=== PATIENT | male | born 1940 | race Caucasian/White ===

== ENCOUNTER 2019-05-07 15:04 | Inpatient (IN) | payer MEDICARE, SELFPAY ==
[2019-03-21 12:30] VITALS: BMI 25.1
[2019-03-21 13:10] VITALS: BP 147/82; PULSE 48; RESP 18; TEMP 36.7; O2SAT 98
--- NOTE | 2019-05-01 08:14 | PM.IMHP ---
H&P: HPI History of Present Illness Chief complaint: Left Hip DJD Narrative: Hip Pain Involved hip: left Onset: gradual Location of pain: lateral and posterior Pain scale (0-10): 9 Character: stabbing, radiating, aching, throbbing and weakness Timing of pain: constant Exacerbated by: sitting, activities of daily living and prolonged activity Relieved by: NSAIDs, heat, rest and cane Associated symptoms: Reports weakness History of occupational/recreational activity with repetitive movement: No History of prior hip injury: No Chief Complaint Chief Complaint: see Reason for Visit Duration: years Severity: severe Associated signs and symptoms: symptoms reported: (see HPI ) Exacerbating/relieving factors: relieving factors: (see HPI) Review of Systems Review of Systems: All systems reviewed & are unremarkable except as noted in HPI and below Constitutional: Constitutional: Denies headache(s) and Denies weakness Eyes: Eyes: Denies blurry vision, Denies change in vision and Denies loss of vision ENT: Denies dizziness, Denies dry mouth, Denies headache(s) and Denies nasal congestion Cardiovascular: Cardiovascular: Denies chest pain, Denies syncope, Denies leg edema and Denies dyspnea on exertion Respiratory: Respiratory: Denies cough and Denies dyspnea on exertion Gastrointestinal: Gastrointestinal: Denies abdominal pain, Denies constipation and Denies diarrhea Genitourinary: Genitourinary: Denies urinary frequency Musculoskeletal: Musculoskeletal: Reports as per HPI and Denies numbness Integumentary/Breasts: Skin/Breast: Reports system reviewed and no additional complaints, except as docu Neurologic: Denies dizziness, Denies syncope, Denies headache(s), Denies loss of vision, Denies numbness and Denies weakness Psychiatric: Psychiatric: Reports no additional psychiatric complaints Endocrine: Endocrine: Reports no additional endocrine complaints Hematologic/Lymphatic: Hematologic/Lymphatic: Reports no additional hematologic/lymphatic complaints [facility] Past Medical History Medical History (Updated 03/13/19 @ 11:08 by Reema Bermudez) Left knee pain Social History Social History Smoking status: Never smoker Alcohol intake: current Meds Home Medications and Allergies Home Medications Medication Instructions Recorded Confirmed Type acetaminophen 325 mg tablet 650 mg PO PRN PRN 03/13/19 04/21/19 History aspirin 81 mg tablet,delayed 81 mg PO DAILY 03/13/19 04/21/19 History release atorvastatin 20 mg tablet 20 mg PO QPM 03/13/19 04/21/19 History docusate sodium 100 mg capsule 100 mg PO PRN PRN 03/13/19 04/21/19 History famotidine 20 mg tablet 20 mg PO BID 03/13/19 04/21/19 History furosemide 20 mg tablet 20 mg PO PRN PRN 03/13/19 04/21/19 History lisinopril 2.5 mg tablet 2.5 mg PO DAILY 03/13/19 04/21/19 History magnesium hydroxide 400 mg/5 mL 400 mg PO DAILY PRN 03/13/19 04/21/19 History oral suspension metoprolol succinate 25 mg 25 mg PO DAILY 03/13/19 04/21/19 History tablet,extended release 24 hr multivitamin 1 tablet PO DAILY 03/13/19 04/21/19 History polyethylene glycol 3350 17 17 gm PO PRN PRN 03/13/19 04/21/19 History gram/dose oral powder tramadol 50 mg tablet 50 mg PO Q6H PRN 03/13/19 04/21/19 History mupirocin 2 % topical ointment 1 applic TOPICAL BID #15 gm 03/24/19 04/21/19 Rx Allergies Allergy/AdvReac Type Severity Reaction Status Date / Time Penicillins Allergy Unknown Hives Verified 04/21/19 15:22 Exam Narrative: Exam Narrative: Const Constitutional General: cooperative Nutritional Appearance: average body habitus Orientation/consciousness: oriented x3 Constitutional Limitations: no limitations HENMT Head: normal to inspection Ears: hearing grossly normal bilaterally General nose exam: external nose normal Face and sinus: normal facial exam Mouth: moist mucous membranes Teeth and gingiva: dentition normal Eyes
[2019-05-06] VITALS (11 sets, daily range): BP systolic 71–146; BP diastolic 48–74; PULSE 44–50; RESP 12–16; TEMP 36.4–36.5; O2SAT 91–100
--- NOTE | 2019-05-06 10:10 | WPDANESEPP ---
Anes - Eval Pre Procedure Procedure: Operation Date: 05/06/19 12:00 Proposed Procedures p Left Total Hip Arthroplasty - Roly Rapp MD Date/Time: 05/06/19 10:10 Pre Op Diagnosis: Left Hip DJD Patient Data Age: 78 Gender: M Height: 6 ft 2 in Weight: 88.7 kg Last Vital Signs Temp 98.1 F 03/21/19 13:10 Pulse 48 L 03/21/19 13:10 Resp 18 03/21/19 13:10 BP 147/82 H 03/21/19 13:10 Pulse Ox 98 03/21/19 13:10 Allergies Allergy/AdvReac Type Severity Reaction Status Date / Time Penicillins Allergy Unknown Hives Verified 04/21/19 15:22 Home Medications Medication Instructions Recorded Confirmed Type acetaminophen 325 mg tablet 650 mg PO PRN PRN 03/13/19 04/21/19 History aspirin 81 mg tablet,delayed 81 mg PO DAILY 03/13/19 04/21/19 History release atorvastatin 20 mg tablet 20 mg PO QPM 03/13/19 04/21/19 History docusate sodium 100 mg capsule 100 mg PO PRN PRN 03/13/19 04/21/19 History famotidine 20 mg tablet 20 mg PO BID 03/13/19 04/21/19 History furosemide 20 mg tablet 20 mg PO PRN PRN 03/13/19 04/21/19 History lisinopril 2.5 mg tablet 2.5 mg PO DAILY 03/13/19 04/21/19 History magnesium hydroxide 400 mg/5 mL 400 mg PO DAILY PRN 03/13/19 04/21/19 History oral suspension metoprolol succinate 25 mg 25 mg PO DAILY 03/13/19 04/21/19 History tablet,extended release 24 hr multivitamin 1 tablet PO DAILY 03/13/19 04/21/19 History polyethylene glycol 3350 17 17 gm PO PRN PRN 03/13/19 04/21/19 History gram/dose oral powder tramadol 50 mg tablet 50 mg PO Q6H PRN 03/13/19 04/21/19 History mupirocin 2 % topical ointment 1 applic TOPICAL BID #15 gm 03/24/19 04/21/19 Rx Patient hx anesthesia problems: none Family hx anesthesia problems: none PMFSH Past Medical History Medical History Atrial fibrillation CAD (coronary artery disease) Degenerative joint disease of left hip GERD (gastroesophageal reflux disease) History of heart attack 08/2018 Hyperlipidemia Hypertension Left knee pain Surgical History Surgical History History of appendectomy Hx of CABG 08/22/18 x5 vessel Family History Family History Other Family history of malignant neoplasm Social History Social History Smoking status: Never smoker Alcohol intake: current Exam Day of Procedure 05/06/19 10:10 Patient weight: overweight Neurological: alert and oriented
[2019-05-06] MEDS: IBUPROFEN IV 800 MG/200 ML 800 MG/200 ML BAG 400 MG IVPB (11:00)
[2019-05-06] MEDS: LACTATED RINGERS 1,000 ML 30 ML IV CONT ×2 (11:00→15:15)
--- NOTE | 2019-05-06 11:35 | WPDHPUPDATE1 ---
History and Physical Update Update Date/Time: 05/06/19 11:35 History and Physical has been reviewed, including an updated exam of the patient. There are NO changes in the patient's condition. Risks, benefits, and alternatives have been discussed and questions answered. Patient agrees to proceed with procedure.
--- NOTE | 2019-05-06 11:45 | WPDANESEFPP ---
Anes - Eval Final PreProcedure Day of Procedure 05/06/19 11:45 Patient weight: overweight Heart: regular rate and rhythm Lungs: clear to auscultation and normal air movement Airway: Mallampati scale class II Neurological: alert and oriented Last oral intake: >/= 8 hours ASA classification: III Emergent: no Anesthetic plan: proceed Anesthesia type and monitoring: general ETT and standard monitoring Informed Consent: The patient's anesthetic plan and its attendant risks and benefits were discussed with the patient/family/POA. Questions were solicited and answers provided to the satisfaction of the patient/family/POA.
[2019-05-06] MEDS: ceFAZolin 2 GM/D5W 50 ML 2 GM/50 ML BAG IVPB ×2 (12:22→20:13)
--- NOTE | 2019-05-06 15:03 | PM.OP ---
Procedure Note - Brief Procedure Note - Brief Date of procedure: 05/06/19 Pre-op diagnosis: Left Hip DJD Post-op diagnosis: same Procedure performed: L IGNACIA Anesthesia: GETA Surgeon: Roly Rapp MD Estimated blood loss (mL): 450 Drains: No Complications: No immediate complications Condition: stable Disposition: PACU
[2019-05-06 15:45] LABS: Hematocrit 33.6 % (42.0-52.0); Hemoglobin 10.9 g/dL (14.0-18.0)
--- NOTE | 2019-05-06 15:59 | SUR.PHASEI ---
1555 - family updated on pt's status and sent to room
--- NOTE | 2019-05-06 16:45 | PC.NURSE ---
This patient, Jaxon Maguire, was admitted to 3 [facility] Surg Room 312-01. Patient/family oriented to hospital policies and general routines including ID bracelet, bed and alarms, visiting hours, pain management, procedures, bathroom and other care routines, personal items, smoking policy, room service/diet, and visiting hours. Valuables list has been completed. Information on how to activate the Rapid Response Team has been discussed. Patient/Family are encouraged to report perceived risks to care and to ask questions if they do not understand what they are told or what they should do.
[2019-05-06] MEDS: SODIUM CHLORIDE 0.9% IV 1,000 ML 125 ML IV CONT (18:09)
[2019-05-06] MEDS: DOCUSATE SODIUM 100 MG CAPSULE PO (18:09)
[2019-05-06] MEDS: ATORVASTATIN 20 MG TABLET PO (18:10)
--- NOTE | 2019-05-06 18:14 | OP_ITS ---
DATE OF PROCEDURE: 05/06/2019 PREOPERATIVE DIAGNOSIS: Left hip degenerative joint disease. POSTOPERATIVE DIAGNOSIS: Left hip degenerative joint disease. PROCEDURE: Left total hip arthroplasty. ANESTHESIA: General. COMPLICATIONS: None. INDICATION: This is a 78-year-old male with severe osteoarthrosis to the left hip. He was indicated for left total hip arthroplasty. DESCRIPTION OF PROCEDURE: The patient was taken to the operating room in stable condition and placed in supine position. General anesthesia was induced, and then he was placed in lateral decubitus and the left lower extremity was prepped and draped sterilely from the toes to the thigh. A skin incision was made over the greater trochanter down to the subcutaneous tissues and the fascia was incised. The short external rotators of the hip and the piriformis tendon were identified. Sciatic nerve was identified. The gluteus medius and minimus were retracted. The piriformis was incised along with the capsule. The rest of the short external rotators down to the lesser trochanter. The hip was dislocated. An osteotomy was performed approximately 1 cm proximal to the lesser trochanter. There was severe arthrosis to the joint. There was a deficiency in the posterior wall of the acetabulum. The femoral head measured approximately 58 mm. The acetabulum was exposed. There was calcified capsule that was removed. There was good inferior and superior wall and medial wall coverage. The medial wall bone and anterior wall were sufficient as well, so reaming began approximately 40 degrees of abduction and alignment with the trans-acetabular ligament until a 63 reamer fit well into the acetabulum. The trial was placed and the hip bottomed out well. The trial was removed and then a 64 mm osteotome Biomet acetabular component was tapped into the acetabulum. The fit was excellent. Three screws were placed for extra support. Osteophytes were removed from the inferior wall and the medial wall and in the posteroinferior wall. A liner then was placed and it fit well and was tested and was stable. Next, the femoral canal was prepared, first with a cookie cutter osteotome, and then canal finder and then sequential broaching until an 18 broach fit well within the femoral canal and 15 degrees of anteversion approximately. Neck lengths were incremented until a +12 neck was the proper fit and it was a high offset neck as well. The Shuck test was excellent. The leg lengths were grossly equal. The hip was very stable in internal rotation in 90 degrees of flexion and abduction and adduction. The trial instrumentation was removed, and then a Biomet taper lock #18 with a high offset neck was tapped into place. The fit was excellent. The trial was performed again with a +12 neck and a 36 mm head and it fit well. The Shuck test was excellent and it was very stable in both extension and flexion with internal and external rotation. Then, a cobalt chrome +12 neck, 36 mm head then was tapped under the femoral component. The hip was taken through range of motion once again. The leg lengths were grossly equal. The hip was stable in flexion, extension, and rotation. The wound was then irrigated thoroughly. The piriformis and the short external rotators and the capsule were all approximated with #1 Vicryl. The fascial layer was approximated with #2 Quill, subcutaneous tissues were approximated with 2-0 Vicryl and with 3-0 Quill and then Dermabond was placed. The sterile dressing was applied. The patient was placed back in the supine position. He was extubated and sent to recovery. Gregorio Merrill MT: Orin
[2019-05-06] MEDS: FAMOTIDINE 20 MG TABLET PO (20:14)
[2019-05-06] MEDS: SODIUM CHLORIDE 0.9% IV 1,000 ML 999 ML IV CONT (22:39)
--- NOTE | 2019-05-06 23:02 | PM.IMCN ---
Assessment and Plan Assessment and plan (1) Status post total hip replacement, left: Code(s): Z96.642 - Presence of left artificial hip joint Status: Acute Assessment and Plan: Postop care per Ortho. Pain medication per Ortho. Postop care per Ortho. DVT prophylaxis per ortho. Patient has bilateral SCDs on. (2) Hypertension: Code(s): I10 - Essential (primary) hypertension Status: Chronic Assessment and Plan: Patient is hypotensive had to have a IV bolus. Hold lisinopril and metoprolol as well as Lasix in the morning if his blood pressure still remains low. I believe that the patient had orthostatic hypotension when he got up to the chair. Hold Lasix for now. Is listed as p.r.n. please hold for now. (3) Congestive heart failure: Code(s): I50.9 - Heart failure, unspecified Status: Chronic Assessment and Plan: Patient has systolic congestive heart failure with the EF of of 25-35%. Hold Lasix and metoprolol for today as his blood pressure is low. (4) Anemia: Code(s): D64.9 - Anemia, unspecified Status: Chronic Assessment and Plan: Please continue to monitor CBC. (5) Atrial fibrillation: Code(s): I48.91 - Unspecified atrial fibrillation Status: Chronic Assessment and Plan: Rate is controlled but metoprolol cannot be given at this time due to his low blood pressure. Patient does not appear to be on any anticoagulant. (6) Hyperlipidemia: Code(s): E78.5 - Hyperlipidemia, unspecified Status: Chronic Assessment and Plan: Continue with atorvastatin (7) CAD (coronary artery disease): Code(s): I25.10 - Atherosclerotic heart disease of [place] coronary artery without angina pectoris Status: Chronic Assessment and Plan: History of 5 vessel CABG. Patient's aspirin has been continued. HPI Data of Consult Consult date: 05/06/19 Requesting Physician: Roly Rapp MD Primary Care Provider: Grey Cardona MD Consult Narrative Narrative: Jaxon Maguire is a 78 year old male who has severe degenerative joint disease. The patient had cardiac clearance in order to undergo an elective left total hip arthroplasty today per Dr. Rapp. The patient appeared to be doing well today and Aleve got up in into the chair he felt a little nauseated and lightheaded. The patient's blood pressure dropped. I have been giving him some IV boluses. He has a history of having congestive heart failure and atrial fibrillation. The patient stated that he did eat and drink this evening. Hospitalists were consulted for medical management. The date of service is 05/06/2019. Review of Systems Review of Systems: Narrative: The patient stated that he felt a little dizzy when he got up and sat in a chair. He was nauseated periods is found have a low blood pressure in the knee was placed back to bed. All systems reviewed & are unremarkable except as noted in HPI and below Constitutional: Constitutional: Reports as per HPI and Reports no additional constitutional complaints Eyes: Eyes: Reports as per HPI and Reports no additional eye complaints ENT: Reports system reviewed and no additional complaints, except as documented and Reports Normal hearing present Cardiovascular: Cardiovascular: Reports no additional cardiovascular complaints Respiratory: Respiratory: Reports no additional respiratory complaints and Reports no additional respiratory complaints Gastrointestinal: Gastrointestinal: Reports as per HPI and Reports no additional gastrointestinal complaints Musculoskeletal: Musculoskeletal: Reports no additional musculoskeletal complaints Integumentary/Breasts: Skin/Breast: Reports system reviewed and no additional complaints, except as docu and Reports as per HPI Neurologic: Reports system reviewed and no additional complaints, except as documented, Reports as per HPI and Reports Normal hearing present Psychia
[2019-05-07] VITALS (18 sets, daily range): BP systolic 77–139; BP diastolic 53–78; PULSE 48–79; RESP 14–18; TEMP 36.8–37.4; O2SAT 94–98
--- NOTE | ~2019-05-07 | US_ITS ---
EXAMINATION: US renal BI EXAM DATE: 05/07/2019 16:43 INDICATION: Worsening renal function. TECHNIQUE: Multiple grayscale and Doppler images of the kidneys were obtained (by a technologist who performed the scan) and subsequently reviewed. There is no prior study for comparison. FINDINGS: Right kidney: There is normal contour and echogenicity. It measures 9.7 x 5.6 x 6.3 centimeters. Sev eral cysts, largest measuring 6 cm. There is no hydronephrosis. Left kidney: There is normal contour and echogenicity. It measures 9.6 x 4.6 x 5.6 centimeters. Erika ral cysts, largest measuring 2.5 cm. There is no hydronephrosis. The bladder is distended. Both ureteral jets were confirmed. Prostate normal in size. IMPRESSION: 1. No hydronephrosis. 2. Bilateral renal cysts. 3. Distended bladder. Reviewed, dictated and finalized at location A. TH EDITOR
--- NOTE | ~2019-05-07 | XR_ITS ---
EXAMINATION: XR hip LT 1V DATE: 05/06/2019 15:29 INDICATION: Left hip arthroplasty. Postop. TECHNIQUE: A single view of left hip was obtained. COMPARISON: Pelvis radiograph 08/19/2018 FINDINGS: There is a total left hip arthroplasty in near-anatomic alignment. No fracture. There is ga s in the soft tissues, consistent with recent surgery. IMPRESSION: 1. Total left hip arthroplasty in near-anatomic alignment. Reviewed, dictated and finalized at location A. CAL LIBRARIAN
[2019-05-07] MEDS: ceFAZolin 2 GM/D5W 50 ML 2 GM/50 ML BAG IVPB ×2 (03:53→12:41)
[2019-05-07] MEDS: SODIUM CHLORIDE 0.9% IV 1,000 ML 125 ML IV CONT (05:27)
[2019-05-07 06:12] LABS: Basophils Absolute Auto 0.1 K/mm3 (0.0-0.1); Basophils Percent Auto 0.4 % (0.2-1.2); Eosinophils Percent Auto 0.3 % (0-4.4); Hematocrit 29.9 % (42.0-52.0); Hemoglobin 9.9 g/dL (14.0-18.0); Immature Granulocyte Absolute 0.08 K/mm3 (0.00-0.031); Immature Granulocyte Percent A 0.6 % (0-0.5); Lymphocytes Percent Auto 9.2 % (18.3-44.2); Mean Corpuscular HGB Conc 33.1 g/dl (32-36); Mean Corpuscular Volume 99.7 fl (80-100); Mean Platelet Volume 10.7 fl (7.4-10.4); Monocytes Absolute Auto 1.3 K/mm3 (0.1-0.6); Monocytes Percent Auto 10.1 % (2.6-8.5); Neutrophils Absolute Auto 10.4 K/mm3 (1.3-6.7); Neutrophils Percent Auto 79.4 % (45.5-73.1); Platelet Count Result 175 k/mm3 (150-375); Red Cell Distribution Width 14.6 % (11.5-14.5); White Blood Count 13.1 K/mm3 (4.5-10.0)
[2019-05-07 06:39] LABS: Blood Urea Nitrogen 35 mg/dL (9-20); Calcium 8.3 mg/dL (8.4-10.2); Carbon Dioxide 23 mmol/L (22-30); Chloride 104 mmol/L (98-107); Estimated CRCL calculation 28 ml/min; Estimated Glomerular Filt Rate 28; Glucose 116 mg/dL (75-110); Potassium 5.2 mmol/L (3.4-5.0); Sodium 134 mmol/L (137-145)
[2019-05-07] MEDS: CELECOXIB 200 MG CAPSULE PO (09:15)
[2019-05-07] MEDS: DOCUSATE SODIUM 100 MG CAPSULE PO ×2 (09:15→17:28)
[2019-05-07] MEDS: FAMOTIDINE 20 MG TABLET PO ×2 (09:16→21:12)
[2019-05-07] MEDS: ASPIRIN 325 MG ENTERIC TABLET 650 MG PO (09:16)
--- NOTE | 2019-05-07 13:38 | WPDANESPN ---
Anes - Prog Note Post-Op Date/Time: 05/07/19 13:38 Cardiovascular status: normal Respiratory status: normal Airway patency: baseline Mental status: baseline Post-Op hydration status: normal Vital Signs: Last Vital Signs Temp 36.8 C 05/07/19 10:00 Pulse 60 05/07/19 12:32 Resp 16 05/07/19 10:00 BP 125/78 05/07/19 10:57 Pulse Ox 98 05/07/19 10:00 I/O: Intake & Output 05/06/19 05/07/19 05/07/19 23:59 07:59 15:59 Intake Total 1510 1450 730 Balance 1510 1450 730 Laboratory Tests 05/07/19 05:25 05/07/19 05:25 05/06/19 05/07/19 05/07/19 15:36 05:25 05:25 WBC 13.1 H RBC 3.00 L Hgb 10.9 L D 9.9 L Hct 33.6 L 29.9 L MCV 99.7 MCH 33.0 MCHC 33.1 RDW 14.6 H Plt Count 175 MPV 10.7 H Immature Gran % (Auto) 0.6 H Neut % (Auto) 79.4 H Lymph % (Auto) 9.2 L [place] % (Auto) 10.1 H Eos % (Auto) 0.3 Baso % (Auto) 0.4 Lymph # (Auto) 1.20 [place] # (Auto) 1.3 H Eos # (Auto) 0.0 Baso # (Auto) 0.1 Abs Immat Gran (auto) 0.08 H Absolute Neuts (auto) 10.4 H Absolute Nucleated RBC 0.0 Nucleated RBC % 0.0 Sodium 134 L Potassium 5.2 H Chloride 104 Carbon Dioxide 23 BUN 35 H Creatinine 2.30 H Estim Creat Clear Calc 28 Estimated GFR 28 L Glucose 116 H Calcium 8.3 L Post-procedural complaints: none Patient Feedback: Patient satisfied with anesthetic care.
--- NOTE | 2019-05-07 14:27 | P.PNIM_ITS ---
Progress Note: A&P Assessment and Plan (1) Status post total hip replacement, left: Code(s): Z96.642 - Presence of left artificial hip joint Status: Acute Assessment and Plan: * Doing well POD 1 (2) Hypertension: Qualifiers: Hypertension type: essential hypertension Qualified Code(s): I10 - Essential (primary) hypertension Code(s): I10 - Essential (primary) hypertension Status: Chronic Assessment and Plan: * 3/4 d/c ivf as pressure has normalized (3) Congestive heart failure: Qualifiers: Heart failure type: systolic Heart failure chronicity: chronic Qualified Code(s): I50.22 - Chronic systolic (congestive) heart failure Code(s): I50.9 - Heart failure, unspecified Status: Chronic Assessment and Plan: * EF of of 25-35%. * Hold furosemide and monitor volume status (4) Anemia: Qualifiers: Anemia type: other cause Other causes of anemia: acute posthemorrhagic Qualified Code(s): D62 - Acute posthemorrhagic anemia Code(s): D64.9 - Anemia, unspecified Status: Chronic Assessment and Plan: * Post op due to acute losses, dilution (5) Atrial fibrillation: Qualifiers: Atrial fibrillation type: unspecified Qualified Code(s): I48.91 - Unspecified atrial fibrillation Code(s): I48.91 - Unspecified atrial fibrillation Status: Chronic Assessment and Plan: * HR controlled * Metoprolol held due to low BP * Ideally he would be anticoagulated, but takes only aspirin (6) Hyperlipidemia: Qualifiers: Hyperlipidemia type: unspecified Qualified Code(s): E78.5 - Hyperlipidemia, unspecified Code(s): E78.5 - Hyperlipidemia, unspecified Status: Chronic Assessment and Plan: * Continue atorvastatin (7) CAD (coronary artery disease): Qualifiers: Coronary Disease-Associated Artery/Lesion type: [place] artery [place] vs. transplanted heart: [place] heart Associated angina: without angina Qualified Code(s): I25.10 - Atherosclerotic heart disease of [place] coronary artery without angina pectoris Code(s): I25.10 - Atherosclerotic heart disease of [place] coronary artery without angina pectoris Status: Chronic Assessment and Plan: * History of 5 vessel CABG. * Continue ASA 81mg (8) Acute urinary retention: Code(s): R33.8 - Other retention of urine Status: Acute Assessment and Plan: * Due to narcotics, bedrest, possibly BPH * Straight cath PRN (9) Chronic kidney disease (CKD) stage G4/A2, severely decreased glomerular filtration rate (GFR) between 15-29 mL/min/1.73 square meter and albuminuria creatinine ratio between 30-299 mg/g: Code(s): N18.4 - Chronic kidney disease, stage 4 (severe) Status: Acute Assessment and Plan: * Worsened over past several months * Hyperkalemia suggests obstructive uropathy * Renal u/s Subjective Date/time seen: 05/07/19 14:27 Interval history: Left hip ache. Urinary retention. Dry mouth. Tolerating diet. No cp ro sob. No edema. N GI c/o. Review of Systems Review of Systems: All systems reviewed & are unremarkable except as noted in HPI and below Exam Narrative: Exam Narrative: HEENT: EOMI, PERRL, pharyngeal mucosa pink and intact NECK: No JVD CHEST: Clear to auscultation. Normal effort. HEART: NL S1/S2, regular, no murmur ABDOMEN: BS+, soft, nontender, no mass, no bruits EXTREMITIES: No cyanosis, edema, or clubbing NEUROLOGIC: C
--- NOTE | 2019-05-07 14:27 | PM.IMPN ---
Progress Note: A&P Assessment and Plan (1) Status post total hip replacement, left: Code(s): Z96.642 - Presence of left artificial hip joint Status: Acute Assessment and Plan: Doing well POD 1 (2) Hypertension: Qualifiers: Hypertension type: essential hypertension Qualified Code(s): I10 - Essential (primary) hypertension Code(s): I10 - Essential (primary) hypertension Status: Chronic Assessment and Plan: 3/4 d/c ivf as pressure has normalized (3) Congestive heart failure: Qualifiers: Heart failure type: systolic Heart failure chronicity: chronic Qualified Code(s): I50.22 - Chronic systolic (congestive) heart failure Code(s): I50.9 - Heart failure, unspecified Status: Chronic Assessment and Plan: EF of of 25-35%. Hold furosemide and monitor volume status (4) Anemia: Qualifiers: Anemia type: other cause Other causes of anemia: acute posthemorrhagic Qualified Code(s): D62 - Acute posthemorrhagic anemia Code(s): D64.9 - Anemia, unspecified Status: Chronic Assessment and Plan: Post op due to acute losses, dilution (5) Atrial fibrillation: Qualifiers: Atrial fibrillation type: unspecified Qualified Code(s): I48.91 - Unspecified atrial fibrillation Code(s): I48.91 - Unspecified atrial fibrillation Status: Chronic Assessment and Plan: HR controlled Metoprolol held due to low BP Ideally he would be anticoagulated, but takes only aspirin (6) Hyperlipidemia: Qualifiers: Hyperlipidemia type: unspecified Qualified Code(s): E78.5 - Hyperlipidemia, unspecified Code(s): E78.5 - Hyperlipidemia, unspecified Status: Chronic Assessment and Plan: Continue atorvastatin (7) CAD (coronary artery disease): Qualifiers: Coronary Disease-Associated Artery/Lesion type: [place] artery [place] vs. transplanted heart: [place] heart Associated angina: without angina Qualified Code(s): I25.10 - Atherosclerotic heart disease of [place] coronary artery without angina pectoris Code(s): I25.10 - Atherosclerotic heart disease of [place] coronary artery without angina pectoris Status: Chronic Assessment and Plan: History of 5 vessel CABG. Continue ASA 81mg (8) Acute urinary retention: Code(s): R33.8 - Other retention of urine Status: Acute Assessment and Plan: Due to narcotics, bedrest, possibly BPH Straight cath PRN (9) Chronic kidney disease (CKD) stage G4/A2, severely decreased glomerular filtration rate (GFR) between 15-29 mL/min/1.73 square meter and albuminuria creatinine ratio between 30-299 mg/g: Code(s): N18.4 - Chronic kidney disease, stage 4 (severe) Status: Acute Assessment and Plan: Worsened over past several months Hyperkalemia suggests obstructive uropathy Renal u/s Subjective Date/time seen: 05/07/19 14:27 Interval history: Left hip ache. Urinary retention. Dry mouth. Tolerating diet. No cp ro sob. No edema. N GI c/o. Review of Systems Review of Systems: All systems reviewed & are unremarkable except as noted in HPI and below Exam Narrative: Exam Narrative: HEENT: EOMI, PERRL, pharyngeal mucosa pink and intact NECK: No JVD CHEST: Clear to auscultation. Normal effort. HEART: NL S1/S2, regular, no murmur ABDOMEN: BS+, soft, nontender, no mass, no bruits EXTREMITIES: No cyanosis, edema, or clubbing NEUROLOGIC: CN intact and symmetric to inspection. MUSCULOSKELETAL: Tone and strength symmetric. PSYCH: Alert. Oriented to person, place, and time. Objective Data Vital Signs Vital Signs: Vital Signs - 24 hr 05/06/19 15:15 05/06/19 15:30 05/06/19 15:45 Temperature 97.7 F Pulse Rate 44 L 45 L 46 L Respiratory Rate 13 13 12 Blood Pressure 90/55 L 121/68 118/70 Pulse Oximetry 99 100 100 05/06/19 16:00 05/06/19 16:15 05/06/19 16:30 Temperature
[2019-05-07 15:52] LABS: Albumin Level 3.4 g/dL (3.5-5.1); Blood Urea Nitrogen 31 mg/dL (9-20); Calcium 8.1 mg/dL (8.4-10.2); Carbon Dioxide 21 mmol/L (22-30); Chloride 98 mmol/L (98-107); Estimated CRCL calculation 29 ml/min; Estimated Glomerular Filt Rate 29; Glucose 105 mg/dL (75-110); Phosphorus 3.5 mg/dL (2.5-4.5); Potassium 4.4 mmol/L (3.4-5.0); Sodium 133 mmol/L (137-145)
--- NOTE | 2019-05-07 16:52 | PM.PNORT ---
Progress Note: A&P Additional Plan POD 1 DOING WELL FROM ORTHO STAND POINT. HE IS HAVING SOME URINARY RETENTION AND INCREASED POTASSIUM. CONTINUE CURRENT PT REGIMEN. HIS DISCHARGE WILL BE BASED ON MEDICINE RECOMMENDATIONS. Time Spent With Patient Time with patient: less than 15 minutes Subjective Subjective Date/Time Seen: 05/07/19 1 POD 1 DOING WELL. NO CALF PAIN 6:52 POD 1 DOING WELL. NO CALF PAIN Exam Extrem: Other: VSS AFEBRILE DRESSING DRY [place] INTACT NEG HOMANS SIGN Objective Data Vital Signs Vital Signs: Vital Signs - 24 hr 05/06/19 21:47 05/06/19 22:00 05/06/19 22:19 Temperature 36.4 C L Pulse Rate 48 L 50 L 48 L Respiratory Rate 14 Blood Pressure 72/48 L 71/50 L Pulse Oximetry 91 05/06/19 23:34 05/07/19 00:30 05/07/19 02:00 Temperature 37.2 C Pulse Rate 48 L 50 L Respiratory Rate 14 Blood Pressure 98/56 L 122/54 L Pulse Oximetry 98 05/07/19 04:00 05/07/19 05:30 05/07/19 05:35 Temperature Pulse Rate 54 L 54 L 61 Respiratory Rate Blood Pressure 130/63 77/62 L Pulse Oximetry 05/07/19 05:40 05/07/19 06:00 05/07/19 08:00 Temperature 37.4 C Pulse Rate 61 54 L 49 L Respiratory Rate 14 Blood Pressure 99/56 L 130/63 Pulse Oximetry 97 05/07/19 10:00 05/07/19 10:56 05/07/19 10:57 Temperature 36.8 C Pulse Rate 54 L Respiratory Rate 16 Blood Pressure 139/63 105/57 L 125/78 Pulse Oximetry 98 05/07/19 12:32 05/07/19 13:57 05/07/19 14:00 Temperature 37.1 C Pulse Rate 60 54 L Respiratory Rate 18 Blood Pressure 127/57 L Pulse Oximetry 94 98 05/07/19 16:42 Temperature Pulse Rate 55 L Respiratory Rate Blood Pressure Pulse Oximetry Intake/Output Intake/Output: Intake & Output 05/04/19 05/05/19 05/06/19 05/07/19 23:59 23:59 23:59 23:59 Intake Total 2009 3229 Output Total 500 Balance 2009 2730 Meds/Results Medications: Active Medications Generic Name Dose Route Start Last Admin Trade Name Freq PRN Reason Stop Dose Admin Acetaminophen 650 mg 05/06/19 15:09 Tylenol Tablet PO Q6H PRN Mild Pain (1-3) or Fever Hydrocodone Bitart/Acetaminophen 1 tab 05/06/19 15:09 05/07/19 09:21 [place] 7.5-325 Mg PO 1 tab Q3H PRN Administration Pain Rated 4-6 Aspirin 650 mg 05/07/19 09:00 05/07/19 09:16 Aspirin Ec PO 650 mg DAILY RALPH Administration Atorvastatin Calcium 20 mg 05/06/19 18:00 05/06/19 18:10 Lipitor PO 20 mg QPM RAPLH Administration Celecoxib 200 mg 05/07/19 09:00 05/07/19 09:15 Celebrex PO 200 mg DAILY RALPH Administration Diazepam 5 mg 05/06/19 15:09 Valium Po PO Q6H PRN Anxiety/Muscle Spasm Docusate Sodium 100 mg 05/06/19 17:00 05/07/19 09:15 Colace Capsule PO 100 mg BID RALPH Administration Famotidine 20 mg 05/06/19 21:00 05/07/19 09:16 Pepcid PO 20 mg Q12HR RALPH Administration Fentanyl Citrate 25 mcg 05/05/19 09:26 Sublimaze IV PUSH Q2M PRN Pain Furosemide 20 mg 05/06/19 16:31 Lasix Tablet PO PRN PRN SWELLING Lactated Ringer's 1,000 mls @ 30 mls/hr 05/05/19 09:30 05/06/19 15:15 Lr - Lactated Ringers Iv IV CONT Infused .Q24H RALPH Infusion Lactated Ringer's 1,000 mls @ 30 mls/hr 05/05/19 09:30 05/06/19 16:27 Lr - Lactated Ringers Iv IV CONT Infused .Q24H RALPH Infusion Lisinopril 2.5 mg 05/07/19 09:00 05/07/19 09:10 Prinivil PO Not Given DAILY [facility] Magnesium Hydroxide 30 ml 05/06/19 15:09 Milk Of Magnesia PO BID PRN Constipation Metoprolol Succinate 25 mg 05/07/19 09:00 05/07/19 09:10 Toprol Xl PO Not Given DAILY [facility] Morphine Sulfate 3 mg 05/06/19 15:09 Morphine Sulfate Inj IV PUSH Q3H PRN Pain Rated 7-10 Naloxone HCl 0.1 mg 05/06/19 15:09 Narcan IV PUSH Q2M PRN Opiate Reversal Ondansetron HCl 4 mg 05/05/19 09:26 Zofran Inj IV PUSH ONCE PRN Nausea Ondan
[2019-05-07] MEDS: ATORVASTATIN 20 MG TABLET PO (17:02)
[2019-05-08] VITALS (8 sets, daily range): BP systolic 93–118; BP diastolic 48–61; PULSE 56–79; RESP 16–20; TEMP 36.6–37.3; O2SAT 97–98
[2019-05-08 06:54] LABS: Hematocrit 27.4 % (42.0-52.0); Hemoglobin 9.1 g/dL (14.0-18.0); Immature Platelet Fraction Pct 4.4 % (0.9-11.2); Mean Corpuscular HGB Conc 33.2 g/dl (32-36); Mean Corpuscular Hemoglobin 32.9 pg (26-34); Mean Corpuscular Volume 98.9 fl (80-100); Mean Platelet Volume 10.6 fl (7.4-10.4); Platelet Count Result 147 k/mm3 (150-375); Red Blood Count 2.77 M/mm3 (4.6-6.20); Red Cell Distribution Width 14.4 % (11.5-14.5); White Blood Count 8.3 K/mm3 (4.5-10.0)
[2019-05-08 07:00] LABS: Blood Urea Nitrogen 28 mg/dL (9-20); Calcium 8.2 mg/dL (8.4-10.2); Carbon Dioxide 22 mmol/L (22-30); Chloride 101 mmol/L (98-107); Estimated CRCL calculation 33 ml/min; Estimated Glomerular Filt Rate 34; Glucose 107 mg/dL (75-110); Potassium 4.2 mmol/L (3.4-5.0); Sodium 135 mmol/L (137-145)
--- NOTE | 2019-05-08 07:13 | WPDURCON ---
Assessment and Plan Assessment and plan (1) Acute urinary retention: Code(s): R33.8 - Other retention of urine Status: Acute (2) BPH loc w urin obs/LUTS: Code(s): N40.1 - Benign prostatic hyperplasia with lower urinary tract symptoms Status: Acute Assessment and Plan: Transient post-op retention likely due to underlying BPH complicated by immobility, affects of analgesics/anesthesia on normal detrusor function. Now, seems to be voiding well. Will check bladder scan and, if OK, plan no further intervention. Urology Consult Note HPI Date Seen: 05/08/19 Requesting Physician: Roly Rapp MD Primary Care Provider: Grey Cardona MD Consult Narrative Narrative: Jaxon Maguire is a 78 year old male without antecedent voiding difficulty, or other urological problems, developed transient urinary retention following IGNACIA. He denies pre-operative urinary hesitancy, nocturia, slow steam or sense of incomplete emptying. After need for straight-cath. x2 he's now voiding and seems, by exam, to be emptying completely. Review of Systems Cardiovascular: Cardiovascular: Denies chest pain, Denies lightheadedness, Denies palpitations and Denies dyspnea Respiratory: Respiratory: Denies dyspnea Gastrointestinal: Gastrointestinal: Denies diarrhea, Denies nausea and Denies vomiting Genitourinary: Genitourinary: Denies hematuria and Denies dysuria Endocrine: Endocrine: Denies palpitations PMFSH Past Medical History Medical History Anemia Atrial fibrillation Paroxysmal CAD (coronary artery disease) 5 vessel CABG. 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 Patient stated that he quit smoking about 2 months ago. He said he smoked for many years. No alcohol or illicit drugs. He was an only child. His Sarah is the power bottom turning lathe tender for healthcare. He at this point stated he is a full code because the surgery but otherwise had this at that he is a DNR. There is paperwork from [employer]. He lives with his . He has 1 child. Smoking packs per day: 0.5 Smoking cigarettes per day: 10.0 Years smoked: 50 Smoking pack-years: 25.00 Smoking status: Former smoker Second hand tobacco smoke exposure: Yes Alcohol intake: never Substance use: never Living arrangements: assisted living Occupation/Education: retired Gender identity (if verbalized by the patient): Male Spiritual care concerns: No Agree to blood products: Yes Meds Home Medications and Allergies Home Medications Medication Instructions Recorded Confirmed Type acetaminophen 325 mg tablet 650 mg PO PRN PRN 03/13/19 05/06/19 History aspirin 81 mg tablet,delayed 81 mg PO DAILY 03/13/19 05/06/19 History release atorvastatin 20 mg tablet 20 mg PO QPM 03/13/19 05/06/19 History docusate sodium 100 mg capsule 100 mg PO PRN PRN 03/13/19 05/06/19 History famotidine 20 mg tablet 20 mg PO BID 03/13/19 05/06/19 History furosemide 20 mg tablet 20 mg PO PRN PRN 03/13/19 05/06/19 History lisinopril 2.5 mg tablet 2.5 mg PO DAILY 03/13/19 05/06/19 History magnesium hydroxide 400 mg/5 mL 400 mg PO DAILY PRN
[2019-05-08] MEDS: CELECOXIB 200 MG CAPSULE PO (09:04)
[2019-05-08] MEDS: ASPIRIN 325 MG ENTERIC TABLET 650 MG PO (09:04)
[2019-05-08] MEDS: DOCUSATE SODIUM 100 MG CAPSULE PO (09:05)
[2019-05-08] MEDS: FAMOTIDINE 20 MG TABLET PO (09:05)
--- NOTE | 2019-05-08 15:14 | P.PNIM_ITS ---
Progress Note: A&P Assessment and Plan (1) Status post total hip replacement, left: Code(s): Z96.642 - Presence of left artificial hip joint Status: Acute Assessment and Plan: * Doing well POD 2 * Medically stable to discharge (2) Hypertension: Qualifiers: Hypertension type: essential hypertension Qualified Code(s): I10 - Essential (primary) hypertension Code(s): I10 - Essential (primary) hypertension Status: Chronic Assessment and Plan: * 3/4 d/c ivf as pressure has normalized * Conitnue to hole metoprolol due to soft bp (3) Congestive heart failure: Qualifiers: Heart failure type: systolic Heart failure chronicity: chronic Qualified Code(s): I50.22 - Chronic systolic (congestive) heart failure Code(s): I50.9 - Heart failure, unspecified Status: Chronic Assessment and Plan: * EF of of 25-35%. * Continue to hold metoprolol and furosemide until f/u with Dr. Payne (4) Anemia: Qualifiers: Anemia type: other cause Other causes of anemia: acute posthemorrhagic Qualified Code(s): D62 - Acute posthemorrhagic anemia Code(s): D64.9 - Anemia, unspecified Status: Chronic Assessment and Plan: * Post op due to acute losses, dilution (5) Atrial fibrillation: Qualifiers: Atrial fibrillation type: unspecified Qualified Code(s): I48.91 - Unspecified atrial fibrillation Code(s): I48.91 - Unspecified atrial fibrillation Status: Chronic Assessment and Plan: * HR controlled * Metoprolol held due to low BP * Ideally he would be anticoagulated, but takes only aspirin (6) Hyperlipidemia: Qualifiers: Hyperlipidemia type: unspecified Qualified Code(s): E78.5 - Hyperlipidemia, unspecified Code(s): E78.5 - Hyperlipidemia, unspecified Status: Chronic Assessment and Plan: * Continue atorvastatin (7) CAD (coronary artery disease): Qualifiers: Coronary Disease-Associated Artery/Lesion type: [place] artery [place] vs. transplanted heart: [place] heart Associated angina: without angina Qualified Code(s): I25.10 - Atherosclerotic heart disease of [place] coronary artery without angina pectoris Code(s): I25.10 - Atherosclerotic heart disease of [place] coronary artery without angina pectoris Status: Chronic Assessment and Plan: * History of 5 vessel CABG. * Continue ASA 81mg (8) Acute urinary retention: Code(s): R33.8 - Other retention of urine Status: Acute Assessment and Plan: * Due to narcotics, bedrest, possibly BPH * Straight cath PRN (9) Chronic kidney disease (CKD) stage G4/A2, severely decreased glomerular filtration rate (GFR) between 15-29 mL/min/1.73 square meter and albuminuria creatinine ratio between 30-299 mg/g: Code(s): N18.4 - Chronic kidney disease, stage 4 (severe) Status: Acute Assessment and Plan: * Worsened over past several months * Hyperkalemia suggests obstructive uropathy * Renal u/s negative for hydronephrosis * Repeat BMP in 5 days Subjective Date/time seen: 05/08/19 15:14 Interval history: Urinating every couple of hours now. Good stream. No discomfort. No bleeding. Required to straight catheters last evening. Tolerating diet. No chest pain or shortness of breath or dizziness or lightheadedness. Review of Systems Review of Systems: All systems reviewed & are unremarkable except as noted in HPI and below Exam Narrative:
--- NOTE | 2019-05-08 15:14 | PM.IMPN ---
Progress Note: A&P Assessment and Plan (1) Status post total hip replacement, left: Code(s): Z96.642 - Presence of left artificial hip joint Status: Acute Assessment and Plan: Doing well POD 2 Medically stable to discharge (2) Hypertension: Qualifiers: Hypertension type: essential hypertension Qualified Code(s): I10 - Essential (primary) hypertension Code(s): I10 - Essential (primary) hypertension Status: Chronic Assessment and Plan: 3/4 d/c ivf as pressure has normalized Conitnue to hole metoprolol due to soft bp (3) Congestive heart failure: Qualifiers: Heart failure type: systolic Heart failure chronicity: chronic Qualified Code(s): I50.22 - Chronic systolic (congestive) heart failure Code(s): I50.9 - Heart failure, unspecified Status: Chronic Assessment and Plan: EF of of 25-35%. Continue to hold metoprolol and furosemide until f/u with Dr. Payne (4) Anemia: Qualifiers: Anemia type: other cause Other causes of anemia: acute posthemorrhagic Qualified Code(s): D62 - Acute posthemorrhagic anemia Code(s): D64.9 - Anemia, unspecified Status: Chronic Assessment and Plan: Post op due to acute losses, dilution (5) Atrial fibrillation: Qualifiers: Atrial fibrillation type: unspecified Qualified Code(s): I48.91 - Unspecified atrial fibrillation Code(s): I48.91 - Unspecified atrial fibrillation Status: Chronic Assessment and Plan: HR controlled Metoprolol held due to low BP Ideally he would be anticoagulated, but takes only aspirin (6) Hyperlipidemia: Qualifiers: Hyperlipidemia type: unspecified Qualified Code(s): E78.5 - Hyperlipidemia, unspecified Code(s): E78.5 - Hyperlipidemia, unspecified Status: Chronic Assessment and Plan: Continue atorvastatin (7) CAD (coronary artery disease): Qualifiers: Coronary Disease-Associated Artery/Lesion type: [place] artery [place] vs. transplanted heart: [place] heart Associated angina: without angina Qualified Code(s): I25.10 - Atherosclerotic heart disease of [place] coronary artery without angina pectoris Code(s): I25.10 - Atherosclerotic heart disease of [place] coronary artery without angina pectoris Status: Chronic Assessment and Plan: History of 5 vessel CABG. Continue ASA 81mg (8) Acute urinary retention: Code(s): R33.8 - Other retention of urine Status: Acute Assessment and Plan: Due to narcotics, bedrest, possibly BPH Straight cath PRN (9) Chronic kidney disease (CKD) stage G4/A2, severely decreased glomerular filtration rate (GFR) between 15-29 mL/min/1.73 square meter and albuminuria creatinine ratio between 30-299 mg/g: Code(s): N18.4 - Chronic kidney disease, stage 4 (severe) Status: Acute Assessment and Plan: Worsened over past several months Hyperkalemia suggests obstructive uropathy Renal u/s negative for hydronephrosis Repeat BMP in 5 days Subjective Date/time seen: 05/08/19 15:14 Interval history: Urinating every couple of hours now. Good stream. No discomfort. No bleeding. Required to straight catheters last evening. Tolerating diet. No chest pain or shortness of breath or dizziness or lightheadedness. Review of Systems Review of Systems: All systems reviewed & are unremarkable except as noted in HPI and below Exam Narrative: Exam Narrative: HEENT: EOMI, PERRL, pharyngeal mucosa pink and intact NECK: No JVD CHEST: Clear to auscultation. Normal effort. HEART: NL S1/S2, regular, no murmur ABDOMEN: BS+, soft, nontender, no mass, no bruits EXTREMITIES: No cyanosis, edema, or clubbing NEUROLOGIC: CN intact and symmetric to inspection. MUSCULOSKELETAL: Tone and strength symmetric. PSYCH: Alert. Oriented to person, place, and time. Objective Data Vital Signs Vital Signs: Vi
--- NOTE | 2019-05-09 11:33 | P.DS_ITS ---
DS: Diagnosis Admitting Diagnosis Admitting Diagnosis: Unilateral primary osteoarthritis, left hip DS: Summary Time Spent with Patient Time attestation: Total time spent providing and/or coordinating discharge serv ices: 15 MIN Discharge Plan Discharge Attending physician on discharge: Roly Rapp Consulting providers: Claudette Cary ; Gee Pizarro Discharging Clinician: Roly Rapp Patient Disposition: Home Health Service Activity: may shower and as tolerated Diet: heart healthy Wound Care Instructions: other - see discharge instructions Discharge Instructions: Monitor weight daily and call MD for any 2 pound weight change. Call Dr. Payne or go to ED if you have: Chest discomfort, shortness of breath, swelling of legs. Call Dr. Curran if you have difficulty urinating. Per Care Coordination, Pt. will discharge to [facility] . Send dressing home with patient for home health nurse to change in 5 days. Patient Instructions: Antibiotic Form, Precautions after Total Joint Replacement Surgery (DC) Stand Alone Forms: General Discharge Information Follow-up/Referrals: Roly Rapp MD [Physician] - 3 Weeks Discharge Medications: New celecoxib [Celebrex] 200 mg Capsule 200 mg PO DAILY Qty: 28 RF: 0 Continued acetaminophen [Tylenol] 325 mg tablet 650 mg PO PRN PRN (Reason: Pain) RF: 0 famotidine 20 mg tablet 20 mg PO BID RF: 0 magnesium hydroxide [Eisenberg Milk of Magnesia] 400 mg/5 mL suspension 400 mg PO DAILY PRN (Reason: Constipation) RF: 0 tramadol 50 mg tablet 50 mg PO Q6H PRN (Reason: Pain) RF: 0 atorvastatin 20 mg tablet 20 mg PO QPM RF: 0 docusate sodium [Colace] 100 mg capsule 100 mg PO PRN PRN (Reason: Constipation) RF: 0 polyethylene glycol 3350 [Miralax] 17 gram/dose powder 17 gm PO PRN PRN (Reason: Constipation) RF: 0 metoprolol succinate [Toprol XL] 25 mg tablet extended release 24 hr 25 mg PO DAILY RF: 0 multivitamin Tablet 1 tablet PO DAILY RF: 0 mupirocin 2 % ointment 1 applic TOPICAL BID Qty: 15 RF: 0 Changed aspirin 81 mg tablet,delayed release (DR/EC) 162 mg PO DAILY Qty: 0 RF: 0 Held lisinopril 2.5 mg tablet 2.5 mg PO DAILY RF: 0 Hold Instructions: Resume on 05/15/19. Resume when approved by Dr. Payne furosemide 20 mg tablet 20 mg PO PRN PRN (Reason: SWELLING) RF: 0 Hold Instructions: Resume on 05/15/19. Resume when approved by Dr. Payne Other Ambulatory Orders: Basic Metabolic Panel (Routine) Timeframe: 5 Days Location: Determined by Patient Ordered By: Bradley Forbes Date of admission: 05/07/19 15:04 Primary Care Provider: Grey Cardona Admitting Provider: Roly Rapp Discharge Date/Time: 05/08/19 19:02 Attending physician on admission: Roly Rapp Condition: Stable Quality VTE Prophylaxis VTE prophylaxis: mechanical ordered
--- NOTE | 2019-05-29 13:48 | P.DS_ITS ---
DS: Diagnosis Admitting Diagnosis Admitting Diagnosis: Unilateral primary osteoarthritis, left hip Discharge Diagnosis (1) Degenerative joint disease of left hip: Qualifiers: Osteoarthritis type: primary Qualified Code(s): M16.12 - Unilateral primary osteoarthritis, left hip Code(s): M16.12 - Unilateral primary osteoarthritis, left hip Status: Acute DS: Summary Time Spent with Patient Time attestation: Total time spent providing and/or coordinating discharge services: Discharge Plan Discharge Attending physician on discharge: Roly Rapp Consulting providers: Claudette Cary ; Yaakov Curran ; Kayleen Hickey ; Chirag Kidd ; Bradley Forbes Discharging Clinician: Roly Rapp Patient Disposition: Home, Self-Care Activity: may shower and as tolerated Diet: heart healthy Wound Care Instructions: other - see discharge instructions Discharge Instructions: Monitor weight daily and call MD for any 2 pound weight change. Call Dr. Payne or go to ED if you have: Chest discomfort, shortness of breath, swelling of legs. Call Dr. Curran if you have difficulty urinating. Per Care Coordination, Pt. will discharge to [facility] . Send dressing home with patient for home health nurse to change in 5 days. Patient Instructions: Antibiotic Form, Precautions after Total Joint Replacem ent Surgery (DC) Stand Alone Forms: General Discharge Information Follow-up/Referrals: Roly Rapp MD [Physician] - 3 Weeks Discharge Medications: New celecoxib [Celebrex] 200 mg Capsule 200 mg PO DAILY Qty: 28 RF: 0 Continued acetaminophen [Tylenol] 325 mg tablet 650 mg PO PRN PRN (Reason: Pain) RF: 0 famotidine 20 mg tablet 20 mg PO BID RF: 0 magnesium hydroxide [[place]isenberg Milk of Magnesia] 400 mg/5 mL suspension 400 mg PO DAILY PRN (Reason: Constipation) RF: 0 tramadol 50 mg tablet 50 mg PO Q6H PRN (Reason: Pain) RF: 0 atorvastatin 20 mg tablet 20 mg PO QPM RF: 0 docusate sodium [Colace] 100 mg capsule 100 mg PO PRN PRN (Reason: Constipation) RF: 0 polyethylene glycol 3350 [Miralax] 17 gram/dose powder 17 gm PO PRN PRN (Reason: Constipation) RF: 0 metoprolol succinate [Toprol XL] 25 mg tablet extended release 24 hr 25 mg PO DAILY RF: 0 multivitamin Tablet 1 tablet PO DAILY RF: 0 mupirocin 2 % ointment 1 applic TOPICAL BID Qty: 15 RF: 0 Changed aspirin 81 mg tablet,delayed release (DR/EC) 162 mg PO DAILY Qty: 0 RF: 0 Held lisinopril 2.5 mg tablet 2.5 mg PO DAILY RF: 0 Hold Instructions: Resume on 05/15/19. Resume when approved by Dr. Payne furosemide 20 mg tablet 20 mg PO PRN PRN (Reason: SWELLING) RF: 0 Hold Instructions: Resume on 05/15/19. Resume when approved by Dr. Payne Other Ambulatory Orders: Basic Metabolic Panel (Routine) Timeframe: 5 Days Location: Determined by Patient Ordered By: Bradley Forbes Date of admission: 05/07/19 15:04 Primary Care Provider: Grey Cardona Admitting Provider: Roly Rapp Discharge Date/Time: 05/08/19 19:02 Attending physician on admission: Roly Rapp Condition: Stable Quality VTE Prophylaxis VTE prophylaxis: mechanical ordered
== END 2019-05-08 19:02 | disposition home or self-care (01) | DRG 470 ==
LOC: ANHSURGERY 15:34 → ANH3MEDSUR 15:34
PROVIDERS: Internal Medicine; Admitting Provider Orthopaedic Surgery; PCP Family Medicine Adolescent Medicine; Visit Provider Orthopaedic Surgery
PROC: 0SRB01A Replacement of Left Hip Joint with Metal Synthetic Substitute, Uncemented, Open Approach (ICD-10-PCS; CPT 27130; principal; 2019-05-06 12:00)
DX: M16.12 Unilateral primary osteoarthritis, left hip (principal); I13.0 Hypertensive heart and chronic kidney disease with heart failure and stage 1 through stage 4 chronic kidney disease, or unspecified chronic kidney disease; I50.22 Chronic systolic (congestive) heart failure; N18.4 Chronic kidney disease, stage 4 (severe); D62 Acute posthemorrhagic anemia; I48.20 Chronic atrial fibrillation, unspecified; R33.8 Other retention of urine; N40.1 Benign prostatic hyperplasia with lower urinary tract symptoms; N13.9 Obstructive and reflux uropathy, unspecified; I25.10 Atherosclerotic heart disease of native coronary artery without angina pectoris; K21.9 Gastro-esophageal reflux disease without esophagitis; E78.5 Hyperlipidemia, unspecified; E87.5 Hyperkalemia; F17.210 Nicotine dependence, cigarettes, uncomplicated; I25.2 Old myocardial infarction; Z95.1 Presence of aortocoronary bypass graft; Z87.891 Personal history of nicotine dependence
CPT/HCPCS: 36415; 73501; 76775; 80048; 80069; 85014; 85018; 85025; 85027; 85055; 86850; 86900; 86901; 87081; 97110; 97116; 97161; 97165; 97530; 97535; A9270; C1776; J0171; J0690; J1100; J1170; J1741; J2270; J2370; J2405; J2704; J2710; J2795; J3010; J3370; J7030; J7120

== ENCOUNTER 2020-12-15 16:43 | Inpatient (IN) | payer MEDICARE, SELFPAY ==
--- NOTE | ~2020-12-15 | CT_ITS ---
EXAMINATION: CT abdomen pelvis w con DATE: 12/15/2020 18:34 INDICATION: Epigastric abdominal pain. TECHNIQUE: Computed tomography (CT) of the abdomen and pelvis was performed with 100 mL Omnipaque 350 intravenous contrast. Automated exposure control and iterative reconstruction technique were employe d. The dose-length product was 753.81 mGy-cm. COMPARISON: CT abdomen and pelvis 08/22/2018 FINDINGS: The visualized portions of the lung bases demonstrate mild emphysema and mild dependent ate lectasis. There is smooth septal thickening, consistent with mild pulmonary edema. There are trace pl eural effusions. Cardiomegaly is noted. There are coronary artery calcifications. There are calcifica tions of the aortic valve. There are changes of coronary artery bypass grafting. The liver and gallbl adder are normal. Calcifications in the spleen are consistent with old granulomatous disease. The tong creas and adrenal glands are normal. There are cysts in the kidneys measuring up to 6.4 cm on the rig ht. There is a 2.8 cm enhancing mass in left kidney lower pole, increased from 1.9 cm on 08/22/2018. T here are scattered diverticula colon. There is mild wall thickening of sigmoid colon. There is disten tion of the proximal colon. There is a moderate volume of stool in the colon. Stool distends the rect um. There are likely changes of appendectomy. There are no pathologically enlarged lymph nodes. There is no free intraperitoneal fluid. There is a left hip arthroplasty. There is severe lumbar spondylos is. There is mild chronic height loss of multiple vertebral bodies. There is dextroscoliosis of thora columbar spine. IMPRESSION: 1. Mild pulmonary edema. 2. Mild wall thickening of sigmoid colon, likely chronic diverticulitis. 3. Distention of the proximal colon and rectum, likely adynamic ileus. 4. 2.8 cm enhancing mass in left kidney, increased from 1.9 cm on 08/22/2018, consistent with renal ce ll carcinoma. Reviewed, dictated and finalized at location A. IMPRESSION: 1. Mild pulmonary edema. 2. Mild wall thickening of sigmoid colon, likely chronic diverticulitis. 3. Distention of the proximal colon and rectum, likely adynamic ileus. 4. 2.8 cm enhancing mass in left kidney, increased from 1.9 cm on 08/22/2018, co nsistent with renal cell carcinoma.
--- NOTE | ~2020-12-15 | CT_ITS ---
EXAMINATION: CTA abdomen pelvis DATE: 12/15/2020 22:46 INDICATION: Severe abdominal pain. TECHNIQUE: Computed tomographic angiography (CTA) of the abdomen and pelvis was performed with 100 mL Omnipaque-350 intravenous contrast. Automated exposure control and iterative reconstruction techniqu e were employed. The dose-length product was 1217.06 mGy-cm. Maximum intensity projection 3D-reconstr uctions of the aorta and other arteries were constructed by the technologist on a separate workstatio n. COMPARISON: CT abdomen and pelvis 12/15/2020 at 6:11 PM, 08/22/18 FINDINGS: The visualized portions of the lung bases demonstrate mild dependent atelectasis. There is mild emphysema. There are small pleural effusions. The heart size is normal. There are coronary arter y calcifications. Median sternotomy wires are noted. No pericardial effusion. There is a small slidin g hiatal hernia. The liver is normal. The gallbladder is contracted and contains contrast. Calcificat ions in the spleen are consistent with old granulomatous disease. The pancreas and adrenal glands are normal. There are cysts in the kidneys measuring up to 7.1 cm on the right. There is a 2.8 cm enhanc ing mass in left kidney lower pole. There is a moderate volume of stool in the colon. There is disten tion of the rectum. There are scattered diverticula in the colon. There is mild wall thickening of th e sigmoid colon. There are likely changes of appendectomy. There are no pathologically enlarged lymph nodes. There is no free intraperitoneal fluid. The prostate is mildly enlarged. There is calcified a therosclerosis of the aorta and many of the other arteries. There is no significant stenosis of guerita c axis. There is severe stenosis of superior mesenteric artery 7 cm from its origin. Abdominal aorta is normal in caliber. There is a fenestrated intimal flap in infrarenal aorta. There is an intimal fl ap in right renal artery with contrast opacification on both sides of the flap. There is moderate wing nosis of left renal artery origin. There is no significant stenosis of inferior mesenteric artery. Th ere is total occlusion of left superficial femoral artery. There is a total left hip arthroplasty. Th ere is severe lumbar spondylosis. IMPRESSION: 1. 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 2. Intimal flaps in infrarenal aorta and right renal artery. 3. Moderate stenosis of left renal artery. 4. Total occlusion of left superficial femoral artery. 5. Small pleural effusions. 6. Chronic mild wall thickening of sigmoid colon, likely chronic diverticulitis. 7. Distention of the rectum, likely adynamic ileus. 8. 2.8 cm enhancing mass in left kidney, increased from 1.9 cm on 08/22/2018, consistent with renal ce ll carcinoma. Reviewed, dictated and finalized at location A. IMPRESSION: 1. 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 2. Intimal flaps in infrarenal aorta and right renal artery. 3. Moderate stenosis of left renal artery. 4. Total occlusion of left superficial femoral artery. 5. Small pleural effusions. 6. Chronic mild wall thickening of sigmoid colon, likely chronic diverticulitis . 7. Distention of the rectum, likely adynamic ileus. 8. 2.8 cm enhancing mass in left kidney, increased from 1.9 cm on 08/22/2018, co nsistent with renal cell carcinoma.
[2020-12-15 16:49] VITALS: PULSE 58; RESP 20; TEMP 36.5; O2SAT 95
--- NOTE | 2020-12-15 16:50 | ED.ABDPAIN ---
HPI - Abdominal Pain General Chief Complaint: Abdominal Pain Stated Complaint: ABD PAIN Time Seen by Provider: 12/15/20 16:45 Source: patient and EMS Mode of arrival: EMS Limitations: no limitations History of Present Illness HPI narrative: Patient is an 80-year-old male with a history of hypertension, CHF, atrial fibrillation, anemia, who presents for evaluation of abdominal pain. Pain began suddenly while the patient was playing cards with his friends. He reports central abdominal pain without radiation to the back. No lower abdominal pain. Patient states that he does not have any recent food indiscretions. He denies nausea and vomiting up to this point. He denies fever or chills. Patient states he feels weak, slightly sweaty. No chest pain or shortness of breath. Patient has history of appendectomy. No other intra-abdominal surgery. Related Data Home Medications Medication Instructions Recorded Confirmed acetaminophen 325 mg tablet 650 mg PO PRN PRN 03/13/19 05/06/19 atorvastatin 20 mg tablet 20 mg PO QPM 03/13/19 05/06/19 docusate sodium 100 mg capsule 100 mg PO PRN PRN 03/13/19 05/06/19 famotidine 20 mg tablet 20 mg PO BID 03/13/19 05/06/19 furosemide 20 mg tablet 20 mg PO PRN PRN 03/13/19 05/06/19 lisinopril 2.5 mg tablet 2.5 mg PO DAILY 03/13/19 05/06/19 magnesium hydroxide 400 mg/5 mL 400 mg PO DAILY PRN 03/13/19 05/06/19 oral suspension metoprolol succinate 25 mg 25 mg PO DAILY 03/13/19 05/06/19 tablet,extended release 24 hr multivitamin 1 tablet PO DAILY 03/13/19 05/06/19 polyethylene glycol 3350 17 17 gm PO PRN PRN 03/13/19 05/06/19 gram/dose oral powder tramadol 50 mg tablet 50 mg PO Q6H PRN 03/13/19 05/06/19 Allergies Allergy/AdvReac Type Severity Reaction Status Date / Time Penicillins Allergy Unknown Hives Verified 05/06/19 11:54 Review of Systems Review of Systems: CONSTITUTIONAL: Denies fever, chills, or sweats. EYES: Denies visual changes, redness, or discharge. ENT: Denies rhinorrhea, congestion, sore throat, or otalgia. CARDIOVASCULAR: Denies chest pain, palpitations, or edema. RESPIRATORY: Denies cough or dyspnea. GASTROINTESTINAL: Reports abdominal pain, nausea, vomiting GENITOURINARY: Denies dysuria or hematuria. SKIN: Denies rash or itching. MUSCULOSKELETAL: Denies back pain, joint pain, or myalgia. NEUROLOGIC: Denies headache, numbness, reports feeling diffusely weak PMFSH Past Medical History Medical History (Updated 12/15/20 @ 20:17 by Luanne Castano MD) Anemia Atrial fibrillation Paroxysmal CAD (coronary artery disease) 5 vessel CABG. 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 Patient stated that he quit smoking about 2 months ago. He said he smoked for many years. No alcohol or illicit drugs. He was an only child. His Sarah is the power prosecuting attorney for healthcare. He at this point stated he is a full code because the surgery but otherwise had this at that he is a DNR. There is paperwork from [employer]. He lives with his . He has 1 child. Smoking packs per day: 0.5 Smoking cigarettes per day: 10.0 Years smoked: 50 Smoking pack-years: 25.00 Smoking status: Former smoker Second hand tobacco smoke ex
--- NOTE | 2020-12-15 16:57 | ECG_ITS ---
Measurements Intervals [place] Rate: 61 P: 41 RI: 149 QRS: -19 QRSD: 129 T: 47 QT: 474 QTc: 480 Interpretive Statements SINUS RHYTHM POSSIBLE LEFT ATRIAL ENLARGEMENT MINIMAL Q WAVES- LATERAL LEADS INFERIOR INFARCT, AGE INDETERMINATE BORDERLINE ST-T WAVE ABNORMALITY- HIGH LATERAL LEADS BASELINE ARTIFACT- II, III, AVF ABNORMAL ECG Electronically Signed On 12-15-2020 20:21:45 CDT by Roel Orta D.O.
[2020-12-15] MEDS: ONDANSETRON INJ 4 MG/2 ML VIAL IV PUSH ×2 (17:23→23:34)
[2020-12-15] MEDS: MORPHINE SULFATE (*CRX) 4 MG/ML INJ IV PUSH (17:23)
[2020-12-15] MEDS: SODIUM CHLORIDE 0.9% IV 1,000 ML 999 ML IV CONT (17:24)
[2020-12-15 17:55] LABS: Basophils Absolute Auto 0.1 K/mm3 (0.0-0.1); Basophils Percent Auto 0.6 % (0.2-1.2); Eosinophils Absolute Auto 0.4 K/mm3 (0-0.3); Eosinophils Percent Auto 3.2 % (0-4.4); Hematocrit 45.9 % (42.0-52.0); Immature Granulocyte Absolute 0.05 K/mm3 (0.00-0.031); Immature Granulocyte Percent A 0.4 % (0-0.5); Lymphocytes Absolute Auto 2.37 K/mm3 (0.9-3.2); Lymphocytes Percent Auto 18.6 % (18.3-44.2); Mean Corpuscular HGB Conc 32.7 g/dl (32-36); Mean Corpuscular Hemoglobin 28.1 pg (26-34); Mean Corpuscular Volume 86.1 fl (80-100); Mean Platelet Volume 9.9 fl (7.4-10.4); Monocytes Percent Auto 8.2 % (2.6-8.5); Neutrophils Absolute Auto 8.8 K/mm3 (1.3-6.7); Platelet Count Result 244 k/mm3 (150-375); Red Blood Count 5.33 M/mm3 (4.6-6.20); Red Cell Distribution Width 15.9 % (11.5-14.5); White Blood Count 12.8 K/mm3 (4.5-10.0)
[2020-12-15 18:06] LABS: Alanine Aminotransferase 17 U/L (4-50); Albumin Level 4.3 g/dL (3.5-5.1); Alkaline Phosphatase 102 U/L (38-126); Anion Gap 10 mmol/L (8-16); Aspartate Amino Transferase 27 U/L (17-59); Bilirubin,Total 0.4 mg/dL (0.2-1.3); Blood Urea Nitrogen 34 mg/dL (9-20); Carbon Dioxide 22 mmol/L (22-30); Chloride 109 mmol/L (98-107); Estimated CRCL calculation 34 ml/min; Estimated Glomerular Filt Rate 36; Glucose 122 mg/dL (65-110); Sodium 141 mmol/L (137-145)
[2020-12-15 18:32] VITALS: BP 203/94; RESP 18; O2SAT 99
[2020-12-15] MEDS: HYDROmorphone HCL INJ (*CRX) 1 MG/ML SYR 0.5 MG IV PUSH (19:26)
[2020-12-15 20:36] VITALS: BP 226/101; PULSE 66; RESP 21; O2SAT 95
[2020-12-15] MEDS: hydrALAZINE HCL 20 MG/ML VIAL 10 MG IV PUSH (20:45)
[2020-12-15 20:52] LABS: Add Urine Microscopic? YES; Appearance Urine Clear (Clear); Bilirubin Urine Negative (Negative); Blood Urine Negative (Negative); Color Urine Yellow (Yellow); Glucose Urine UA Negative (Negative); Ketones Urine Negative (Negative); Leukocyte Esterase Ur Negative LEU/UL (Negative); Nitrate Urine Negative (Negative); Protein Urine 1+ mg/dL (Negative); Squamous Epithelial Cell Urine Rare /hpf (Few); Urobilinogen Urine Negative mg/dL (<2.0); WBC Urine 0-3 /hpf
--- NOTE | 2020-12-15 20:52 | PM.IMHP ---
H&P: HPI History of Present Illness Date/Time: 12/15/20 20:52 Chief Complaint: Abdominal pain. Narrative: This is an 80-year-old male with past medical history significant for paroxysmal atrial fibrillation, on no anticoagulation, degenerative joint disease, congestive heart failure, coronary artery disease x5 vessel disease, tobacco dependence, hypertension, obstructive sleep apnea. Patient lives at assisted living facility he was brought to the emergency room due to abdominal pain that started out abruptly patient has been in his usual state of health up until this afternoon most of the history has been obtained from son who is at bedside as patient is reading in pain in the gurney. Patient denied any constipation nausea vomiting diarrhea, no fevers no rigors no chills, no shortness of breath no cough no sputum production no chest pain no syncope no near syncope no leg swelling no PND no orthopnea. Preliminary workup was significant CT of abdomen and pelvis with distended colon and rectum, kidney mass. A CTA of abdomen and pelvis was significant for thrombosis of superior mesenteric artery. Review of Systems Review of Systems: Abdominal pain. Constitutional: Constitutional: Denies chills, Denies fever(s) and Denies weakness Eyes: Eyes: Denies change in vision ENT: Denies dysphagia, Denies nasal congestion, Denies nasal discharge, Denies nasal obstruction and Denies odynophagia Cardiovascular: Cardiovascular: Denies chest pain, Denies leg edema, Denies lightheadedness, Denies radiating jaw, neck or arm pain, Denies palpitations, Denies dyspnea, Denies dyspnea on exertion and Denies orthopnea Respiratory: Respiratory: Denies cough and Denies dyspnea Gastrointestinal: Gastrointestinal: Reports abdominal pain, Denies constipation, Denies diarrhea, Denies nausea and Denies vomiting Genitourinary: Genitourinary: Reports no additional male genitourinary complaints Musculoskeletal: Musculoskeletal: Reports no additional musculoskeletal complaints Integumentary/Breasts: Skin/Breast: Reports system reviewed and no additional complaints, except as docu Neurologic: Reports system reviewed and no additional complaints, except as documented Psychiatric: Psychiatric: Reports no additional psychiatric complaints Endocrine: Endocrine: Reports no additional endocrine complaints Hematologic/Lymphatic: Hematologic/Lymphatic: Reports no additional hematologic/lymphatic complaints Allergic/Immunologic: Allergic/Immunologic: Reports no additional allergic/immunologic complaints PMFSH Past Medical History Medical History (Updated 12/16/20 @ 00:29 by Dena Scanlon MD) Anemia Atrial fibrillation Paroxysmal CAD (coronary artery disease) 5 vessel CABG. 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 Patient stated that he quit smoking about 2 months ago. He said he smoked for many years. No alcohol or illicit drugs. He was an only child. His Sarah is the power contract attorney for healthcare. He at this point stated he is a full code because the surgery but otherwise had this at that he is a DNR. There is paperwork from [facility]. He lives with his . He has 1 child. Smoking packs per day: 0.
[2020-12-15] MEDS: METOCLOPRAMIDE HCL INJ 10 MG/2 ML VIAL IV PUSH (21:01)
[2020-12-15] MEDS: metroNIDAZOLE 500 MG/ISO 100ML 500 MG/100 ML BAG 100 MG IVPB (21:08)
[2020-12-15] MEDS: CIPROFLOXACIN 400 MG/D5W 200ML 200 ML 200 MG IVPB (21:08)
[2020-12-15 21:18] VITALS: BP 170/54; PULSE 74; RESP 25; O2SAT 97
[2020-12-15 21:38] LABS: Troponin I < 0.012 ng/mL (0.000-0.034)
[2020-12-15] MEDS: FAMOTIDINE 20 MG/2 ML VIAL IV PUSH (22:20)
[2020-12-15] MEDS: PANTOPRAZOLE SODIUM IV 40 MG VIAL IV PUSH (22:20)
--- NOTE | 2020-12-15 22:27 | PC.NURSE ---
pt to CT at this time.
[2020-12-15 23:20] VITALS: BP 167/59; PULSE 87; RESP 28; TEMP 37.7; O2SAT 94
[2020-12-15] MEDS: HEPARIN SODIUM 5,000 UNITS/ML VIAL 7000 UNITS IV PUSH (23:53)
[2020-12-15] MEDS: SODIUM CHLORIDE 0.9% IV 1,000 ML 125 ML IV CONT (23:56)
[2020-12-16] VITALS (7 sets, daily range): BP systolic 120–140; BP diastolic 54–58; PULSE 73–96; RESP 22–32; TEMP 36.9–37.7; O2SAT 90–94; BMI 25.4
[2020-12-16] MEDS: HYDROmorphone HCL INJ (*CRX) 1 MG/ML SYR 0.5 MG IV PUSH ×3 (00:05→12:19)
[2020-12-16] MEDS: HEPARIN SOD/D5W 100 UNITS/ML 25,000 UNITS/250 ML BAG 15 UNITS IV CONT (00:13)
--- NOTE | 2020-12-16 00:30 | PC.NURSE ---
This patient, Jaxon Maguire, was admitted to IMU Room 201-01 on 12/16/20 at 2320. Patient/family oriented to hospital policies and general routines including ID bracelet, bed and alarms, visiting hours, pain management, procedures, bathroom and other care routines, personal items, smoking policy, room service/diet, and visiting hours. Information on how to activate the Rapid Response Team has been discussed. Patient/Family are encouraged to report perceived risks to care and to ask questions if they do not understand what they are told or what they should do.
[2020-12-16 00:43] LABS: Basophils Percent Auto 0.2 % (0.2-1.2); Eosinophils Percent Auto 0.1 % (0-4.4); Hematocrit 46.1 % (42.0-52.0); Hemoglobin 14.7 g/dL (14.0-18.0); Immature Granulocyte Absolute 0.05 K/mm3 (0.00-0.031); Immature Granulocyte Percent A 0.3 % (0-0.5); Lymphocytes Absolute Auto 0.51 K/mm3 (0.9-3.2); Lymphocytes Percent Auto 3.5 % (18.3-44.2); Mean Corpuscular HGB Conc 31.9 g/dl (32-36); Mean Corpuscular Hemoglobin 27.9 pg (26-34); Mean Corpuscular Volume 87.5 fl (80-100); Mean Platelet Volume 9.4 fl (7.4-10.4); Monocytes Absolute Auto 1.1 K/mm3 (0.1-0.6); Monocytes Percent Auto 7.2 % (2.6-8.5); Neutrophils Absolute Auto 12.9 K/mm3 (1.3-6.7); Neutrophils Percent Auto 88.7 % (45.5-73.1); Platelet Count Result 224 k/mm3 (150-375); Red Blood Count 5.27 M/mm3 (4.6-6.20); Red Cell Distribution Width 15.9 % (11.5-14.5); White Blood Count 14.5 K/mm3 (4.5-10.0)
[2020-12-16 00:53] LABS: INR 1.5; Prothrombin Time 17.7 Seconds (11.1-14.7)
[2020-12-16 00:54] LABS: Lactic Acid Reflex 3.1 mmol/L (0.7-2.1)
[2020-12-16 02:42] LABS: Partial Thromboplastin Time > 200.0 SECONDS (22.3-36.8)
[2020-12-16] MEDS: metroNIDAZOLE 500 MG/ISO 100ML 500 MG/100 ML BAG 100 MG IVPB (03:27)
[2020-12-16 03:41] LABS: Reflex Lactic Acid Yes or No Add Lactic
[2020-12-16] MEDS: ONDANSETRON INJ 4 MG/2 ML VIAL IV PUSH (04:32)
[2020-12-16 04:50] LABS: Basophils Absolute Auto 0.1 K/mm3 (0.0-0.1); Basophils Percent Auto 0.3 % (0.2-1.2); Hemoglobin 15.7 g/dL (14.0-18.0); Immature Granulocyte Absolute 0.09 K/mm3 (0.00-0.031); Immature Granulocyte Percent A 0.5 % (0-0.5); Lymphocytes Absolute Auto 0.84 K/mm3 (0.9-3.2); Lymphocytes Percent Auto 4.9 % (18.3-44.2); Mean Corpuscular Hemoglobin 28.4 pg (26-34); Mean Corpuscular Volume 88.6 fl (80-100); Mean Platelet Volume 10.5 fl (7.4-10.4); Monocytes Absolute Auto 1.1 K/mm3 (0.1-0.6); Monocytes Percent Auto 6.6 % (2.6-8.5); Neutrophils Absolute Auto 15.1 K/mm3 (1.3-6.7); Neutrophils Percent Auto 87.7 % (45.5-73.1); Platelet Count Result 226 k/mm3 (150-375); Red Blood Count 5.53 M/mm3 (4.6-6.20); Red Cell Distribution Width 16.1 % (11.5-14.5); White Blood Count 17.3 K/mm3 (4.5-10.0)
[2020-12-16 05:05] LABS: Lactic Acid 2.5 mmol/L (0.7-2.1)
[2020-12-16] MEDS: SODIUM CHLORIDE 0.9% IV 1,000 ML 125 ML IV CONT (09:21)
[2020-12-16] MEDS: CIPROFLOXACIN 400 MG/D5W 200ML 200 ML 200 MG IVPB (09:28)
[2020-12-16] MEDS: FAMOTIDINE 20 MG/2 ML VIAL IV PUSH (09:32)
--- NOTE | 2020-12-16 09:50 | PC.NURSE ---
Called osman to update her on patient status. Patient left leg and foot cool to touch. Asked her to come see patient right away.
[2020-12-16 10:14] LABS: Partial Thromboplastin Time 146.5 SECONDS (22.3-36.8)
[2020-12-16 10:44] LABS: Alveolar/Arterial O2 Gradient 70.5 mmHg; Base Excess ABG -7.4 mEq/l (+/-2.0); Carboxyhemoglobin 0.7 % THb (0-2.0); Fractional Inspired Oxygen 21 %; HCO3 ABG 13.3 mEq/l (22.0-26.0); Methemoglobin ABG 0.4 %THb (0-1.5); Oxygen Content ABG 19.5 %vol (16.0-22.0); Oxygen Saturation ABG 92.1 % (95.0-100.0); Oxyhemoglobin 90.1 % THb (90.0-100.0); PO2 ABG 56.8 mmHg (80.0-100.0); Reduced Hemoglobin 8.8 %THb (0-5.0); Total Hemoglobin 15.4 g/dL (12.0-18.0)
[2020-12-16 10:45] LABS: PCO2 ABG 18.7 mmHg (35.0-45.0); Site Drawn LEFT RADIAL
[2020-12-16 10:46] LABS: Device ROOM AIR
[2020-12-16 11:09] LABS: Lactic Acid Reflex 3.9 mmol/L (0.7-2.1)
--- NOTE | 2020-12-16 11:20 | PM.TDS ---
Transfer Discharge Sum: Prov Provider Date of admission: 12/16/20 09:12 Primary care physician: Grey Cardona MD Admitting clinician: Dena Scanlon MD Consults: 12/16/20 10:27 Consult to Physician Routine Comment: notified by kat Consulting Provider: Samanta Jaramillo call or contact centre coach/MD group to consult: Dr. Jaramillo- talked to him 10:27 Reason for consultation: Acute Superior mesenteric artery thrombosis Has provider been notified: Yes Attending physician on discharge: Opal Rodriguez Discharging clinician: Kat Luther Anticipated date of transfer: 12/16/20 Receiving physician/facility: [facility] ICU Dr. Whitley and consults to Dr. Callahan Gen Surgery and Dr. Anthony Vascular Surgery DS: Admitting Diagnosis Discharge Date 12/16/20 Admitting Diagnosis Abd pain DS: Discharge Diagnosis Discharge Diagnosis (1) Thrombosis of superior mesenteric artery: Code(s): K55.069 - Acute infarction of intestine, part and extent unspecified Status: Acute Assessment and Plan: The patient is an 80-year-old man with a history of CAD status post CABG x5 2 years ago at [facility], who presents emergency room with sudden onset of abdominal pain while playing solitaire at home. Patient's blood pressure on arrival was severely elevated at 200 3/94, heart rate was low at 58 beats per minute, afebrile, normal oxygenation on room air. Initial labs showed elevated white blood cell count [id number], normal differential, normal H&H, creatinine at baseline at 1.8, BUN 34, lactic acid elevated at 3.1. Normal LFTs. Normal troponin. Normal urinalysis without signs of infection. CTA abdomen pelvis showed thrombus in superior mesenteric artery 7 cm distal to its origin resulting in severe stenosis. Intimal flaps in infrarenal aorta and right renal artery. Moderate stenosis of left renal artery. Total occlusion of left superficial femoral artery. Small pleural effusions. Chronic mild wall thickening of sigmoid colon, likely chronic diverticulitis. Distention of the rectum, likely adynamic ileus. 2.8 cm enhancing mass in left kidney, increased from 1.9 cm on 08/22/2018, consistent with renal cell carcinoma. The patient was admitted to our hospital and started on IV heparin drip for thrombosis, placed NPO, IV fluid hydration, started on IV ciprofloxacin and Flagyl for chronic diverticulitis. Patient continues have abdominal pain, we do not have vascular surgery at our facility so calls were made to tertiary care centers and the patient was excepted room [facility] to the ICU Dr. Whitley and consults to Dr. Callahan Gen Surgery and Dr. Anthony Vascular Surgery Patient is being transferred via ALS with a guarded prognosis 75 minutes of critical care time on this patient with time speaking to patient, family, attending provider, ICU physician, general surgeon, calls made to tertiary care centers talking to their transfer Center, ICU, specialists, ordering tests, reviewing test, rechecking patient and calling family about official plan (2) Arterial occlusion: Code(s): I70.90 - Unspecified atherosclerosis Status: Acute (3) Abdominal pain: Code(s): R10.9 - Unspecified abdominal pain Status: Acute (4) Diverticulitis: Code(s): K57.92 - Diverticulitis of intestine, part unspecified, without perforation or abscess without bleeding Status: Acute (5) Ileus: Code(s): K56.7 - Ileus, unspecified Status: Acute (6) Chronic kidney disease (CKD) stage G4/A2, severely decreased glomerular filtration rate (GFR) between 15-29 mL/min/1.73 square meter and albuminuria creatinine ratio between 30-299 mg/g: Code(s): N18.4 - Chronic kidney disease, stage 4 (severe) Status: Acute (7) CAD (coronary artery disease): Qualifiers: Coronary Disease-Associated Artery/Lesion type: jena artery [place] vs. transplant
[2020-12-16 11:39] LABS: EDCOVIDSCREEN Negative (Negative)
--- NOTE | 2020-12-16 13:25 | PM.CNGS ---
Assessment and Plan Assessment and plan (1) Thrombosis of superior mesenteric artery: Code(s): K55.069 - Acute infarction of intestine, part and extent unspecified Status: Acute Assessment and Plan: worsening mesenteric ischemia, exam concerning for acute bowel ischemia, will need urgent vascular surgery evaluation, cont Heparin gtt History of Present Illness Consult details Consult date: 12/16/20 Reason for consult: abdominal pain Requesting physician: Kat Luther PA-C Narrative: Pt is a 80 y/o M c multiple med issues including CAD, PVD presenting to ED c/o sudden severe abdominal pain starting last night. Pt reports he had been previously well. Pt reports some nausea and cramping associated c pain. Workup, including imaging, significant for mesenteric thrombus, ischemia. Pt has been since admitted to the hospitalist service. Review of Systems Constitutional: Constitutional: Reports anorexia, Denies chills, Reports fatigue, Denies fever(s), Denies headache(s), Denies increased appetite, Reports lethargy, Reports malaise, Reports poor appetite, Reports weakness, Denies weight gain and Denies weight loss Eyes: Eyes: Reports no additional eye complaints ENT: Reports system reviewed and no additional complaints, except as documented Cardiovascular: Cardiovascular: Reports no additional cardiovascular complaints Respiratory: Respiratory: Reports no additional respiratory complaints Gastrointestinal: Gastrointestinal: Reports as per HPI, Reports abdominal pain, Reports bloating, Denies change in bowel habits, Denies constipation, Reports GI cramping, Denies diarrhea, Denies loose stools, Denies vomiting and Denies hematemesis Genitourinary: Genitourinary: Reports no additional male genitourinary complaints Musculoskeletal: Musculoskeletal: Reports no additional musculoskeletal complaints Integumentary/Breasts: Skin/Breast: Reports system reviewed and no additional complaints, except as docu Neurologic: Reports system reviewed and no additional complaints, except as documented Psychiatric: Psychiatric: Reports no additional psychiatric complaints Endocrine: Endocrine: Reports no additional endocrine complaints Hematologic/Lymphatic: Hematologic/Lymphatic: Reports no additional hematologic/lymphatic complaints Allergic/Immunologic: Allergic/Immunologic: Reports no additional allergic/immunologic complaints [facility] Past Medical History Medical History Anemia Atrial fibrillation Paroxysmal CAD (coronary artery disease) 5 vessel CABG. 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 Patient stated that he quit smoking about 2 months ago. He said he smoked for many years. No alcohol or illicit drugs. He was an only child. His Sarah is the power contracts attorney for healthcare. He at this point stated he is a full code because the surgery but otherwise had this at that he is a DNR. There is paperwork from [facility]. He lives with his . He has 1 child. Smoking packs per day: 0.5 Smoking cigarettes per day: 10.0 Years smoked: 50 Smoking pack-years: 25.00 Smoking status: Former smoker Tobacco type: c
--- NOTE | 2020-12-16 20:50 | PC.NURSE ---
Made several phone calls to osman to discuss having patient transferred to another facility as soon as possible. Spoke with osman about patient abdominal pain and lack of foot pulse. Leg is cool to touch and pale in color. Plans were made to transfer patient as soon as possible to [facility].
[2020-12-21 10:28] LABS: Glucose Point of Care 114 mg/dl (65-105)
== END 2020-12-16 12:40 | disposition short-term general hospital (02) | DRG 394 ==
LOC: ANHED 20:17 → ANHIMU 21:14
PROVIDERS: Physician Assistant; Admitting Provider Internal Medicine; Emergency Provider Emergency Medicine; PCP Family Medicine Adolescent Medicine; Visit Provider Internal Medicine
DX: K55.069 Acute infarction of intestine, part and extent unspecified (principal); K57.92 Diverticulitis of intestine, part unspecified, without perforation or abscess without bleeding; K56.7 Ileus, unspecified; I13.0 Hypertensive heart and chronic kidney disease with heart failure and stage 1 through stage 4 chronic kidney disease, or unspecified chronic kidney disease; N18.4 Chronic kidney disease, stage 4 (severe); I50.20 Unspecified systolic (congestive) heart failure; Z20.822 Contact with and (suspected) exposure to COVID-19; R33.8 Other retention of urine; N28.89 Other specified disorders of kidney and ureter; I70.90 Unspecified atherosclerosis; I25.10 Atherosclerotic heart disease of native coronary artery without angina pectoris; I48.91 Unspecified atrial fibrillation; K21.9 Gastro-esophageal reflux disease without esophagitis; D64.9 Anemia, unspecified; Z66 Do not resuscitate; Z79.899 Other long term (current) drug therapy; Z87.891 Personal history of nicotine dependence; Z90.49 Acquired absence of other specified parts of digestive tract; Z95.1 Presence of aortocoronary bypass graft
CPT/HCPCS: 36415; 36600; 74174; 74177; 80053; 81001; 82375; 82805; 82948; 83050; 83605; 84484; 85025; 85610; 85730; 87426; 93005; 96361; 96365; 96368; 96375; 99285; C9113; C9803; J0360; J0744; J1170; J1644; J2270; J2405; J2765; J7030; Q9967

== ENCOUNTER 2021-12-15 16:32 | Emergency (ER) | payer MEDICARE, SELFPAY ==
[2021-12-15] VITALS (17 sets, daily range): BP systolic 117–154; BP diastolic 69–80; PULSE 61–80; RESP 12–22; TEMP 36.3; O2SAT 90–98
[2021-12-15 17:53] LABS: Hematocrit 45.9 % (42.0-52.0); Hemoglobin 16.1 g/dL (14.0-18.0); Immature Granulocyte Absolute 0.03 K/mm3 (0.00-0.031); Immature Granulocyte Percent A 0.3 % (0-0.5); Lymphocytes Absolute Auto 1.29 K/mm3 (0.9-3.2); Lymphocytes Percent Auto 13.8 % (18.3-44.2); Mean Corpuscular HGB Conc 35.1 g/dl (32-36); Mean Corpuscular Volume 91.3 fl (80-100); Mean Platelet Volume 10.5 fl (7.4-10.4); Monocytes Absolute Auto 0.6 K/mm3 (0.1-0.6); Monocytes Percent Auto 6.2 % (2.6-8.5); Neutrophils Absolute Auto 7.5 K/mm3 (1.3-6.7); Neutrophils Percent Auto 79.7 % (45.5-73.1); Platelet Count Result 286 k/mm3 (150-375); Red Blood Count 5.03 M/mm3 (4.6-6.20); Red Cell Distribution Width 15.5 % (11.5-14.5); White Blood Count 9.4 K/mm3 (4.5-10.0)
[2021-12-15 18:06] LABS: Alanine Aminotransferase 30 U/L (6-50); Albumin Level 4.3 g/dL (3.5-5.1); Alkaline Phosphatase 179 U/L (38-126); Anion Gap 11 mmol/L (8-16); Aspartate Amino Transferase 28 U/L (17-59); Bilirubin,Total 0.5 mg/dL (0.2-1.3); Blood Urea Nitrogen 64 mg/dL (9-20); Calcium 9.1 mg/dL (8.4-10.2); Carbon Dioxide 17 mmol/L (22-30); Chloride 97 mmol/L (98-107); Estimated CRCL calculation 21 ml/min; Estimated Glomerular Filt Rate 21; Glucose 143 mg/dL (65-110); Potassium 4.9 mmol/L (3.4-5.0); Sodium 125 mmol/L (137-145)
--- NOTE | 2021-12-15 20:02 | ED.GENADULT ---
HPI - General Adult General Chief complaint: Recheck/Abnormal Lab/Rx Stated complaint: abnormal labs - from [facility] Time Seen by Provider: 12/15/21 19:40 History of Present Illness HPI narrative: 81-year-old male here for evaluation of bad kidney numbers at [facility]. Patient states that his kidney function has been increasing over past several days. Patient states that he was told to drink lots of water, but states that he has not been able to drink as much water as recommended due to nausea (able to drink 2 bottles). per review of patient's records; 12/15 cr is 3.2. 12/13 it was 3.1, 12/05 it was 2.6, 11/03 it was 2.2. States that he has been eating and drinking a lot less over the past week. Denies any changes to his urine. denies any shortness of breath, fevers, chills, leg swelling, chest pain, abdominal pain, vomiting, diarrhea. Did test positive for COVID earlier this month. Related Data Home Medications Medication Instructions Recorded Confirmed acetaminophen 325 mg tablet 650 mg PO PRN PRN Pain (Scale 03/13/19 12/15/20 (Tylenol) Score 1-3) atorvastatin 20 mg tablet 20 mg PO QPM 03/13/19 12/15/20 docusate sodium 100 mg capsule 100 mg PO BID PRN Constipation 03/13/19 12/15/20 (Colace) famotidine 20 mg tablet 20 mg PO BID 03/13/19 12/15/20 furosemide 20 mg tablet 20 mg PO PRN PRN SWELLING 03/13/19 12/15/20 lisinopril 2.5 mg tablet 2.5 mg PO DAILY 03/13/19 12/15/20 magnesium hydroxide 400 mg/5 mL 400 mg PO DAILY PRN Constipation 03/13/19 12/15/20 oral suspension (Eisenberg Milk of Magnesia) metoprolol succinate 25 mg 25 mg PO DAILY 03/13/19 12/15/20 tablet,extended release 24 hr (Toprol XL) multivitamin 1 tablet PO DAILY 03/13/19 12/15/20 polyethylene glycol 3350 17 17 gm PO PRN PRN Constipation 03/13/19 12/15/20 gram/dose oral powder (Miralax) aspirin 81 mg tablet,delayed 81 mg PO DAILY 12/15/20 12/15/20 release cetirizine 10 mg tablet 10 mg PO DAILY 12/15/20 12/15/20 levothyroxine 100 mcg tablet 100 mcg PO DAILY 12/15/20 12/15/20 meclizine 25 mg tablet 25 mg PO TID PRN Dizziness 12/15/20 12/15/20 mecobalamin (vitamin B12) 5,000 5,000 mcg PO DAILY 12/15/20 12/15/20 mcg disintegrating tablet Allergies Allergy/AdvReac Type Severity Reaction Status Date / Time Penicillins Allergy Unknown Hives Verified 05/06/19 11:54 Review of Systems Review of Systems: Gen: Reports weakness. Denies fevers or chills Eyes: Denies eye pain or visual change ENT: Denies congestion Respiratory: Denies shortness of breath or cough CV: Denies chest pain or palpitations GI: Denies abdominal pain nausea, emesis or diarrhea denies burning, urgency, frequency or hematuria Musculoskeletal: Denies back pain or muscle pain Neuro: Denies numbness, tingling, weakness or focal weakness Skin: Denies rash Except as documented, all other systems reviewed and negative [facility] Past Medical History Medical History Anemia Atrial fibrillation Paroxysmal CAD (coronary artery disease) 5 vessel CABG. 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 Patient stated that he quit smoking about 2 months ago. He said he smoked fo
[2021-12-15] MEDS: SODIUM CHLORIDE 0.9% IV 1,000 ML 999 ML IV CONT ×2 (22:11→23:25)
[2021-12-15 22:47] LABS: Add Urine Microscopic? YES; Appearance Urine Clear (Clear); Bilirubin Urine Negative (Negative); Blood Urine Negative (Negative); Color Urine Yellow (Yellow); Glucose Urine UA Negative (Negative); Ketones Urine Negative (Negative); Leukocyte Esterase Ur Negative LEU/UL (Negative); Nitrate Urine Negative (Negative); Protein Urine Negative (Negative); RBC Urine 0-2 /hpf (0-2); Urobilinogen Urine Negative mg/dL (<2.0); WBC Urine 0-3 /hpf
[2021-12-15 23:24] LABS: Magnesium 2.3 mg/dL (1.6-2.3); Phosphorus 4.3 mg/dL (2.5-4.5)
--- NOTE | 2021-12-15 23:52 | PC.NURSE ---
Call Mckinney at [phone], will be here between 0300 and 0345.
[2021-12-16 00:25] VITALS: PULSE 60; RESP 19
[2021-12-16 00:30] VITALS: PULSE 60; RESP 15
[2021-12-16 00:31] VITALS: BP 131/76; PULSE 61; RESP 19
[2021-12-16 00:50] VITALS: PULSE 60; RESP 14
[2021-12-16 01:01] VITALS: PULSE 68; RESP 14
[2021-12-16 03:50] VITALS: BP 112/78; PULSE 64; RESP 18; O2SAT 98
== END 2021-12-16 03:50 ==
PROVIDERS: Emergency Medicine; Physician Assistant; Emergency Provider Emergency Medicine; PCP Family Medicine Adolescent Medicine
DX: I13.0 Hypertensive heart and chronic kidney disease with heart failure and stage 1 through stage 4 chronic kidney disease, or unspecified chronic kidney disease (principal); N18.9 Chronic kidney disease, unspecified; I48.0 Paroxysmal atrial fibrillation; I25.10 Atherosclerotic heart disease of native coronary artery without angina pectoris; I50.20 Unspecified systolic (congestive) heart failure; I25.2 Old myocardial infarction; E78.5 Hyperlipidemia, unspecified; I11.0 Hypertensive heart disease with heart failure; G47.33 Obstructive sleep apnea (adult) (pediatric); K21.9 Gastro-esophageal reflux disease without esophagitis; Z95.1 Presence of aortocoronary bypass graft; Z96.642 Presence of left artificial hip joint; Z66 Do not resuscitate; Z86.16 Personal history of COVID-19; Z87.891 Personal history of nicotine dependence; Z79.82 Long term (current) use of aspirin
CPT/HCPCS: 36415; 80053; 81001; 83735; 83930; 84100; 85025; 96360; 96361; 99283; J7030

== ENCOUNTER 2021-12-19 04:30 | Emergency (ER) | payer MEDICARE, SELFPAY ==
[2021-12-19] VITALS (10 sets, daily range): BP systolic 131–152; BP diastolic 80–128; PULSE 65–70; RESP 17–18; TEMP 36.6; O2SAT 97–100
[2021-12-19 05:15] LABS: Basophils Percent Auto 0.1 % (0.2-1.2); Eosinophils Percent Auto 0.2 % (0-4.4); Hemoglobin 15.5 g/dL (14.0-18.0); Immature Granulocyte Absolute 0.08 K/mm3 (0.00-0.031); Immature Granulocyte Percent A 0.5 % (0-0.5); Lymphocytes Absolute Auto 3.12 K/mm3 (0.9-3.2); Lymphocytes Percent Auto 21.1 % (18.3-44.2); Mean Corpuscular HGB Conc 34.4 g/dl (32-36); Mean Corpuscular Hemoglobin 31.8 pg (26-34); Mean Corpuscular Volume 92.4 fl (80-100); Mean Platelet Volume 10.3 fl (7.4-10.4); Monocytes Absolute Auto 2.3 K/mm3 (0.1-0.6); Monocytes Percent Auto 15.6 % (2.6-8.5); Neutrophils Absolute Auto 9.2 K/mm3 (1.3-6.7); Neutrophils Percent Auto 62.5 % (45.5-73.1); Nucleated Red Blood Cells Perc 0.1 % (0.0-0.2); Platelet Count Result 359 k/mm3 (150-375); Red Blood Count 4.87 M/mm3 (4.6-6.20); Red Cell Distribution Width 15.7 % (11.5-14.5); White Blood Count 14.8 K/mm3 (4.5-10.0)
[2021-12-19 05:25] LABS: Alanine Aminotransferase 25 U/L (6-50); Albumin Level 3.8 g/dL (3.5-5.1); Alkaline Phosphatase 128 U/L (38-126); Anion Gap 8 mmol/L (8-16); Aspartate Amino Transferase 20 U/L (17-59); Bilirubin,Total 0.8 mg/dL (0.2-1.3); Blood Urea Nitrogen 64 mg/dL (9-20); Calcium 9.2 mg/dL (8.4-10.2); Carbon Dioxide 16 mmol/L (22-30); Chloride 107 mmol/L (98-107); Estimated CRCL calculation 25 ml/min; Estimated Glomerular Filt Rate 27; Glucose 89 mg/dL (65-110); Potassium 5.3 mmol/L (3.4-5.0); Sodium 131 mmol/L (137-145)
[2021-12-19] MEDS: SODIUM CHLORIDE 0.9% IV 1,000 ML 999 ML IV CONT (05:39)
--- NOTE | 2021-12-19 06:28 | ED.RECABL ---
HPI - Recheck/Abnormal Lab/Rx General Chief Complaint: Recheck/Abnormal Lab/Rx Stated Complaint: abnormal labs Time Seen by Provider: 12/19/21 05:43 History of Present Illness HPI narrative: Patient is an 81-year-old male with a history of CKD presenting with abnormal labs. Patient states that he has been seeing a appliance repair technician for several months due to worsening renal function. He was recently diagnosed with COVID and has been quarantining with his . He recently had blood work drawn and his creatinine was higher than it had been so he was seen here 2 days ago. He received IV fluids and nephrology recommended outpatient follow-up. His assisted living facility rechecked his labs last night and they were concerned he was dehydrated so they sent him in for fluids. Patient denies any complaints whatsoever. He denies headache, fevers or chills, chest pain, shortness of breath, cough, abdominal pain, nausea or vomiting, dysuria. Related Data Home Medications Medication Instructions Recorded Confirmed acetaminophen 325 mg tablet 650 mg PO PRN PRN Pain (Scale 03/13/19 12/15/20 (Tylenol) Score 1-3) atorvastatin 20 mg tablet 20 mg PO QPM 03/13/19 12/15/20 docusate sodium 100 mg capsule 100 mg PO BID PRN Constipation 03/13/19 12/15/20 (Colace) famotidine 20 mg tablet 20 mg PO BID 03/13/19 12/15/20 furosemide 20 mg tablet 20 mg PO PRN PRN SWELLING 03/13/19 12/15/20 lisinopril 2.5 mg tablet 2.5 mg PO DAILY 03/13/19 12/15/20 magnesium hydroxide 400 mg/5 mL 400 mg PO DAILY PRN Constipation 03/13/19 12/15/20 oral suspension (Eisenberg Milk of Magnesia) metoprolol succinate 25 mg 25 mg PO DAILY 03/13/19 12/15/20 tablet,extended release 24 hr (Toprol XL) multivitamin 1 tablet PO DAILY 03/13/19 12/15/20 polyethylene glycol 3350 17 17 gm PO PRN PRN Constipation 03/13/19 12/15/20 gram/dose oral powder (Miralax) aspirin 81 mg tablet,delayed 81 mg PO DAILY 12/15/20 12/15/20 release cetirizine 10 mg tablet 10 mg PO DAILY 12/15/20 12/15/20 levothyroxine 100 mcg tablet 100 mcg PO DAILY 12/15/20 12/15/20 meclizine 25 mg tablet 25 mg PO TID PRN Dizziness 12/15/20 12/15/20 mecobalamin (vitamin B12) 5,000 5,000 mcg PO DAILY 12/15/20 12/15/20 mcg disintegrating tablet Allergies Allergy/AdvReac Type Severity Reaction Status Date / Time Penicillins Allergy Unknown Hives Verified 05/06/19 11:54 Review of Systems Review of Systems: All systems reviewed & are unremarkable except as noted in HPI and below PMFSH Past Medical History Medical History Anemia Atrial fibrillation Paroxysmal CAD (coronary artery disease) 5 vessel CABG. 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 Patient stated that he quit smoking about 2 months ago. He said he smoked for many years. No alcohol or illicit drugs. He was an only child. His Sarah is the power insurance attorney for healthcare. He at this point stated he is a full code because the surgery but otherwise had this at that he is a DNR. There is paperwork from [employer]. He lives with his . He has 1 child. Smoking packs per day: 0.5 Smoking cigarettes per day: 10.0 Years smoke
== END 2021-12-19 08:56 ==
PROVIDERS: Emergency Provider Emergency Medicine; PCP Family Medicine
DX: I13.0 Hypertensive heart and chronic kidney disease with heart failure and stage 1 through stage 4 chronic kidney disease, or unspecified chronic kidney disease (principal); N18.9 Chronic kidney disease, unspecified; I48.0 Paroxysmal atrial fibrillation; I25.10 Atherosclerotic heart disease of native coronary artery without angina pectoris; I50.20 Unspecified systolic (congestive) heart failure; I25.2 Old myocardial infarction; E78.5 Hyperlipidemia, unspecified; K21.9 Gastro-esophageal reflux disease without esophagitis; G47.33 Obstructive sleep apnea (adult) (pediatric); Z95.1 Presence of aortocoronary bypass graft; Z96.642 Presence of left artificial hip joint; Z79.82 Long term (current) use of aspirin
CPT/HCPCS: 36415; 80053; 85025; 96360; 99283; J7030

== ENCOUNTER 2022-01-01 23:20 | Emergency (ER) | payer MEDICARE, SELFPAY ==
[2022-01-01 23:24] VITALS: BP 104/83; PULSE 88; RESP 19; TEMP 36.4; O2SAT 99
--- NOTE | 2022-01-01 23:30 | ECG_ITS ---
Measurements Intervals [place] Rate: 73 P: 16 [place]: 176 QRS: -42 QRSD: 113 T: 99 QT: 399 QTc: 442 Interpretive Statements SINUS RHYTHM WITH OCCASIONAL VENTRICULAR PREMATURE COMPLEXES INFERIOR/POSTERIOR MYOCARDIAL INFARCTION , OLD ABNORMAL ECG COMPARED TO ECG 12/15/2020 18:11:55 NO SIGNIFICANT CHANGES Electronically Signed On 01-02-2022 12:33:16 CDT by Paulo Keyes M.D.
[2022-01-01 23:34] VITALS: RESP 18
[2022-01-01 23:36] VITALS: BP 137/72; PULSE 74; RESP 17; O2SAT 97
[2022-01-01 23:45] VITALS: PULSE 76; RESP 15; O2SAT 96
[2022-01-01 23:46] VITALS: BP 111/68; PULSE 73; RESP 19; O2SAT 96
--- NOTE | 2022-01-01 23:48 | ED.RECABL ---
HPI - Recheck/Abnormal Lab/Rx General Chief Complaint: Recheck/Abnormal Lab/Rx Stated Complaint: High K, sent from [facility] for fluids? Time Seen by Provider: 01/01/22 23:28 Source: patient Mode of arrival: ambulatory Limitations: no limitations History of Present Illness HPI narrative: This is a 81 year old male that presents to the ER for abnormal labs. Reports he was sent in by his assisted living facility due to elevated potassium. Patient currently has no complaints. Has known chronic kidney disease. Follows with a national insurance officer in [place]. Related Data Home Medications Medication Instructions Recorded Confirmed acetaminophen 325 mg tablet 650 mg PO PRN PRN Pain (Scale 03/13/19 12/15/20 (Tylenol) Score 1-3) atorvastatin 20 mg tablet 20 mg PO QPM 03/13/19 12/15/20 docusate sodium 100 mg capsule 100 mg PO BID PRN Constipation 03/13/19 12/15/20 (Colace) famotidine 20 mg tablet 20 mg PO BID 03/13/19 12/15/20 furosemide 20 mg tablet 20 mg PO PRN PRN SWELLING 03/13/19 12/15/20 lisinopril 2.5 mg tablet 2.5 mg PO DAILY 03/13/19 12/15/20 magnesium hydroxide 400 mg/5 mL 400 mg PO DAILY PRN Constipation 03/13/19 12/15/20 oral suspension (Eisenberg Milk of Smartesting) metoprolol succinate 25 mg 25 mg PO DAILY 03/13/19 12/15/20 tablet,extended release 24 hr (Toprol XL) multivitamin 1 tablet PO DAILY 03/13/19 12/15/20 polyethylene glycol 3350 17 17 gm PO PRN PRN Constipation 03/13/19 12/15/20 gram/dose oral powder (Miralax) aspirin 81 mg tablet,delayed 81 mg PO DAILY 12/15/20 12/15/20 release cetirizine 10 mg tablet 10 mg PO DAILY 12/15/20 12/15/20 levothyroxine 100 mcg tablet 100 mcg PO DAILY 12/15/20 12/15/20 meclizine 25 mg tablet 25 mg PO TID PRN Dizziness 12/15/20 12/15/20 mecobalamin (vitamin B12) 5,000 5,000 mcg PO DAILY 12/15/20 12/15/20 mcg disintegrating tablet Allergies Allergy/AdvReac Type Severity Reaction Status Date / Time Penicillins Allergy Unknown Hives Verified 05/06/19 11:54 Review of Systems Review of Systems: CONSTITUTIONAL: Denies fever CARDIOVASCULAR: Denies chest pain GASTROINTESTINAL: Denies abdominal pain, nausea, vomiting All systems reviewed & are unremarkable except as noted in HPI and below PMFSH Past Medical History Medical History Anemia Atrial fibrillation Paroxysmal CAD (coronary artery disease) 5 vessel CABG. 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 Patient stated that he quit smoking about 2 months ago. He said he smoked for many years. No alcohol or illicit drugs. He was an only child. His Sarah is the power senior attorney for healthcare. He at this point stated he is a full code because the surgery but otherwise had this at that he is a DNR. There is paperwork from [facility] [employer] [facility]. He lives with his . He has 1 child. Smoking packs per day: 0.5 Smoking cigarettes per day: 10.0 Years smoked: 50 Smoking pack-years: 25.00 Smoking status: Former smoker Tobacco type: cigarettes Second hand tobacco smoke exposure: Yes Alcohol intake: never Substance use: never Gender identity (if verbalized by the patient): Male Spiritual c
--- NOTE | 2022-01-01 23:49 | PC.NURSE ---
pt has no complaints. residential sent pt via EMS due to high potassium of 6.1
[2022-01-02] VITALS (8 sets, daily range): BP systolic 106–123; BP diastolic 63–80; PULSE 65–73; RESP 13–19; O2SAT 95–97
[2022-01-02 00:19] LABS: Basophils Absolute Auto 0.1 K/mm3 (0.0-0.1); Basophils Percent Auto 0.9 % (0.2-1.2); Eosinophils Absolute Auto 0.6 K/mm3 (0-0.3); Eosinophils Percent Auto 5.9 % (0-4.4); Hemoglobin 13.2 g/dL (14.0-18.0); Immature Granulocyte Absolute 0.03 K/mm3 (0.00-0.031); Immature Granulocyte Percent A 0.3 % (0-0.5); Lymphocytes Absolute Auto 2.67 K/mm3 (0.9-3.2); Lymphocytes Percent Auto 25.8 % (18.3-44.2); Mean Corpuscular HGB Conc 34.7 g/dl (32-36); Mean Platelet Volume 9.9 fl (7.4-10.4); Monocytes Absolute Auto 1.3 K/mm3 (0.1-0.6); Monocytes Percent Auto 12.7 % (2.6-8.5); Neutrophils Absolute Auto 5.6 K/mm3 (1.3-6.7); Neutrophils Percent Auto 54.4 % (45.5-73.1); Platelet Count Result 380 k/mm3 (150-375); Red Blood Count 4.13 M/mm3 (4.6-6.20); Red Cell Distribution Width 15.5 % (11.5-14.5); White Blood Count 10.3 K/mm3 (4.5-10.0)
[2022-01-02 00:39] LABS: Alanine Aminotransferase 21 U/L (6-50); Albumin Level 3.7 g/dL (3.5-5.1); Alkaline Phosphatase 164 U/L (38-126); Anion Gap 14 mmol/L (8-16); Aspartate Amino Transferase 21 U/L (17-59); Bilirubin,Total 0.6 mg/dL (0.2-1.3); Blood Urea Nitrogen 37 mg/dL (9-20); Calcium 8.8 mg/dL (8.4-10.2); Carbon Dioxide 16 mmol/L (22-30); Chloride 98 mmol/L (98-107); Estimated Glomerular Filt Rate 29; Glucose 121 mg/dL (65-110); Potassium 4.8 mmol/L (3.4-5.0); Sodium 128 mmol/L (137-145)
== END 2022-01-02 00:57 ==
PROVIDERS: Physician Assistant; Emergency Provider Emergency Medicine; PCP Family Medicine
DX: I13.0 Hypertensive heart and chronic kidney disease with heart failure and stage 1 through stage 4 chronic kidney disease, or unspecified chronic kidney disease (principal); N18.4 Chronic kidney disease, stage 4 (severe); I50.20 Unspecified systolic (congestive) heart failure; I25.10 Atherosclerotic heart disease of native coronary artery without angina pectoris; D64.9 Anemia, unspecified; I48.0 Paroxysmal atrial fibrillation; I25.2 Old myocardial infarction; E78.5 Hyperlipidemia, unspecified; M16.12 Unilateral primary osteoarthritis, left hip; K21.9 Gastro-esophageal reflux disease without esophagitis; G47.33 Obstructive sleep apnea (adult) (pediatric); Z95.1 Presence of aortocoronary bypass graft; Z96.642 Presence of left artificial hip joint; Z79.82 Long term (current) use of aspirin; Z87.891 Personal history of nicotine dependence; I49.3 Ventricular premature depolarization
CPT/HCPCS: 36415; 80053; 85025; 93005; 99284

== ENCOUNTER 2023-12-18 11:59 | Emergency (ER) | payer MEDICARE, SELFPAY ==
--- NOTE | ~2023-12-18 | CT_ITS ---
EXAMINATION: CT cervical spine wo con DATE: 12/18/2023 12:19 INDICATION: Fall with head injury TECHNIQUE: Computed tomography (CT) of the cervical spine was performed without intravenous contrast. The dose-length product was 485.68 mGy-cm. COMPARISON: None FINDINGS: 17 degree levocurvature centered at the cervicothoracic junction. 2 mm retrolisthesis C4 on C5 and C5 on C6. 3 mm anterolisthesis C6 on C7, C7 on T1 and T2 on T3 and 2 mm anterolisthesis T1 on T2. Sever e osteoarthritis at the atlantoaxial articulation. Vertebral body heights are normal. No acute fractu re. There is solid osseous fusion across the left-sided C2-C3 facet joint. There is severe disc heigh t loss at C4-C5 through C6-C7 and at the right side of T1-T2, moderate disc height loss at C2-C3 and with right-sided predominance at C7-T1, mild disc height loss at C3-C4 and and T2-T3. There is multil evel severe bilateral cervical and upper thoracic facet osteoarthritis. There is also moderate to sev ere multilevel cervical uncovertebral osteoarthritis greatest on the right at C4-C5 and C5-C6. There is mild central canal stenosis throughout the cervical spine greatest at C4-C5 and C5-C6. Moderate ne ural foraminal stenosis on the left at C3-C4 through C5-C6 and on the right at C4-C5 and C5-C6. There is additional mild stenosis at many of the remaining cervical and upper thoracic neural foramina. At herosclerotic calcifications at the bilateral carotid bulbs. Cervical soft tissues are otherwise unre markable. Mild emphysema with mild biapical pleural-parenchymal scarring. IMPRESSION: 1. 17 degrees cervicothoracic dextroscoliosis with severe spondylosis. No acute osseous abnormality. Reviewed, dictated and finalized at location A.
--- NOTE | ~2023-12-18 | CT_ITS ---
EXAMINATION: CT brain wo con DATE: 12/18/2023 12:19 INDICATION: Fall with head injury TECHNIQUE: Computed tomography (CT) of the head was performed without intravenous contrast. Sagittal and coronal reconstructions were performed. The mA was adjusted according to patient size. Iterative reconstruction technique was employed. The dose-length product was 605.33 mGy-cm. COMPARISON: None FINDINGS: No fracture. No acute intracranial hemorrhage, acute infarction or abnormal extra axial fluid collect ion. There is mild scattered white matter hypoattenuation consistent with chronic small vessel ischem ic disease. Symmetric prominence of the sulci and subarachnoid spaces overlying the convexities consi stent with moderate age-appropriate diffuse cerebral volume loss. Ventricles are normal and symmetric . No mass/mass effect. Intracranial calcified cerebral atherosclerosis is noted. Dystrophic present a nd described calcifications at the bilateral basal ganglia. Changes of bilateral intraocular lens rep lacement. The orbits, paranasal sinuses and mastoid air cells are normal. IMPRESSION: 1. No fracture or acute intracranial process. 2. Age-related changes including moderate diffuse volume loss and mild scattered white matter hypoatt enuation consistent with chronic small vessel ischemic disease. Reviewed, dictated and finalized at location A. IMPRESSION: 1. No fracture or acute intracranial process. 2. Age-related changes including moderate diffuse volume loss and mild scattere d white matter hypoattenuation consistent with chronic small vessel ischemic di sease.
--- NOTE | ~2023-12-18 | XR_ITS ---
XR elbow LT min 3V Ordering provider: Kanu Hung MD History: . fall, PAIN TO LT ELBOW, . Comparison: None. FINDINGS: BONES: Fracture of the ulna olecranon is noted with displacement of the bones. SOFT TISSUES: Soft tissue swelling seen medially and posteriorly most likely a hematoma. Elevation of the anterior fat pad. IMPRESSION: Displaced fracture of the olecranon process of the ulna with surrounding hematoma. Reviewed, dictated and finalized at location A. IMPRESSION: Displaced fracture of the olecranon process of the ulna with surrounding hemato ma.
--- NOTE | ~2023-12-18 | XR_ITS ---
XR hip LT min 3V w AP pelvis Ordering provider: Kanu Hung MD History: . fall PAIN TO LT HIP . Comparison: May 06, 2019 FINDINGS: BONES: No acute fracture or dislocation. HIP JOINT SPACES: Left hip arthroplasty. Right hip mild to moderate osteoarthritic changes. SACROILIAC JOINT SPACES/LUMBAR SPINE: The sacroiliac joint spaces are normal. Mild degenerative campa es of the visualized lower lumbar spine. Bilateral sacroiliitis. PUBIC SYMPHYSIS: Normal. SOFT TISSUES: Normal. Vascular calcifications. IMPRESSION: No acute osseous abnormality . Left hip arthroplasty. Reviewed, dictated and finalized at location A.
--- NOTE | 2023-12-18 12:05 | PC.NURSE ---
Mirela Aly [phone] for ride home
[2023-12-18 12:06] VITALS: BP 150/68; PULSE 74; RESP 16; TEMP 36.2; O2SAT 100
--- NOTE | 2023-12-18 13:07 | ED.GENADULT ---
HPI - General Adult General Chief complaint: Fall Stated complaint: fall Time Seen by Provider: 12/18/23 12:30 History of Present Illness HPI narrative: 83-year-old male present to the emergency department for evaluation for a ground level fall. Patient did strike his head does have a hematoma. Patient has injury to his left elbow and pain in left hip. patient states that he had the ground level fall and then went and played bingo and then was encouraged to have follow-up so he was transferred to the emergency department. Related Data Home Medications Medication Instructions Recorded Confirmed acetaminophen 325 mg tablet 650 mg PO PRN PRN Pain (Scale 03/13/19 12/15/20 (Tylenol) Score 1-3) atorvastatin 20 mg tablet 20 mg PO QPM 03/13/19 12/15/20 docusate sodium 100 mg capsule 100 mg PO BID PRN Constipation 03/13/19 12/15/20 (Colace) famotidine 20 mg tablet 20 mg PO BID 03/13/19 12/15/20 furosemide 20 mg tablet 20 mg PO PRN PRN SWELLING 03/13/19 12/15/20 lisinopril 2.5 mg tablet 2.5 mg PO DAILY 03/13/19 12/15/20 magnesium hydroxide 400 mg/5 mL 400 mg PO DAILY PRN Constipation 03/13/19 12/15/20 oral suspension (Eisenberg Milk of Magnesia) metoprolol succinate 25 mg 25 mg PO DAILY 03/13/19 12/15/20 tablet,extended release 24 hr (Toprol XL) multivitamin 1 tablet PO DAILY 03/13/19 12/15/20 polyethylene glycol 3350 17 17 gm PO PRN PRN Constipation 03/13/19 12/15/20 gram/dose oral powder (Miralax) aspirin 81 mg tablet,delayed 81 mg PO DAILY 12/15/20 12/15/20 release cetirizine 10 mg tablet 10 mg PO DAILY 12/15/20 12/15/20 levothyroxine 100 mcg tablet 100 mcg PO DAILY 12/15/20 12/15/20 meclizine 25 mg tablet 25 mg PO TID PRN Dizziness 12/15/20 12/15/20 mecobalamin (vitamin B12) 5,000 5,000 mcg PO DAILY 12/15/20 12/15/20 mcg disintegrating tablet Allergies Allergy/AdvReac Type Severity Reaction Status Date / Time Penicillins Allergy Unknown Hives Verified 05/06/19 11:54 Review of Systems Review of Systems: All systems reviewed & are unremarkable except as noted in HPI and below PMFSH Past Medical History Medical History Anemia Atrial fibrillation Paroxysmal CAD (coronary artery disease) 5 vessel CABG. 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 Patient stated that he quit smoking about 2 months ago. He said he smoked for many years. No alcohol or illicit drugs. He was an only child. His Sarah is the power associate attorney for healthcare. He at this point stated he is a full code because the surgery but otherwise had this at that he is a DNR. There is paperwork from [facility]. He lives with his . He has 1 child. Smoking packs per day: 0.5 Smoking cigarettes per day: 10.0 Years smoked: 50 Smoking pack-years: 25.00 Smoking status: Former smoker Tobacco type: cigarettes Second hand tobacco smoke exposure: Yes Alcohol intake: never Substance use: never Living arrangements: assisted living Occupation/Education: retired Gender identity (if verbalized by the patient): Male Spiritual care concerns: No Agree to blood products: Yes Exam Narrative: EMILY
[2023-12-18 15:16] VITALS: BP 138/82; PULSE 75; RESP 18; O2SAT 100
== END 2023-12-18 14:51 ==
PROVIDERS: Emergency Provider Emergency Medicine; PCP Family Medicine
DX: S09.90XA Unspecified injury of head, initial encounter (principal); M25.552 Pain in left hip; S61.412A Laceration without foreign body of left hand, initial encounter; S52.022A Displaced fracture of olecranon process without intraarticular extension of left ulna, initial encounter for closed fracture; D64.9 Anemia, unspecified; I48.91 Unspecified atrial fibrillation; I25.10 Atherosclerotic heart disease of native coronary artery without angina pectoris; I11.0 Hypertensive heart disease with heart failure; I50.9 Heart failure, unspecified; G47.30 Sleep apnea, unspecified; K21.9 Gastro-esophageal reflux disease without esophagitis; W19.XXXA Unspecified fall, initial encounter
CPT/HCPCS: 70450; 72125; 73080; 73502; 99284; A4565

== ENCOUNTER 2023-12-24 12:01 | Outpatient (CLI) | payer MEDICARE, SELFPAY ==
--- NOTE | 2023-12-24 12:14 | ECG_ITS ---
Test Date: 2023-12-24 12:33:35 Measurements Intervals [place] Rate: 74 P: 65 MD: 176 QRS: -21 QRSD: 121 T: 89 QT: 408 QTc: 454 Interpretive Statements ELECTRONIC VENTRICULAR PACEMAKER SINUS RHYTHM WITH ATRIAL SENSING AND VENTRICULAR PACING WITH VENTRICULAR PSEUDO FUSION SUSPECT PREVIOUS INFERIOR INFARCTION ABNORMAL RHYTHM ECG WARNING: DATA QUALITY MAY AFFECT INTERPRETATION No previous ECG available for comparison Electronically Signed On 12-24-2023 14:22:28 CDT by Paulo Keyes M.D.
[2023-12-24 12:57] LABS: Hemoglobin 10.9 g/dL (14.0-18.0)
[2023-12-24 13:04] LABS: INR 1.3
[2023-12-24 13:05] LABS: Partial Thromboplastin Time 29.4 Seconds (22.3-36.8)
[2023-12-24 13:10] LABS: Anion Gap 9 mmol/L (4-12); Blood Urea Nitrogen 60 mg/dL (9-20); Calcium 9.3 mg/dL (8.4-10.2); Carbon Dioxide 19 mmol/L (22-30); Chloride 105 mmol/L (98-107); Estimated Glomerular Filt Rate 19; Glucose 88 mg/dL (65-110); Potassium 4.9 mmol/L (3.4-5.0); Sodium 133 mmol/L (137-145)
== END 2023-12-24 12:02 | disposition home or self-care (01) ==
PROVIDERS: Anesthesiology; PCP Family Medicine; Visit Provider Orthopaedic Surgery
DX: Z01.818 Encounter for other preprocedural examination (principal); I12.9 Hypertensive chronic kidney disease with stage 1 through stage 4 chronic kidney disease, or unspecified chronic kidney disease; N18.4 Chronic kidney disease, stage 4 (severe); D64.9 Anemia, unspecified; E78.5 Hyperlipidemia, unspecified
CPT/HCPCS: 36415; 80048; 85014; 85018; 85610; 85730; 93005

== ENCOUNTER 2023-12-25 02:48 | Day surgery (SDC) | payer MEDICARE, SELFPAY ==
[2023-12-20 15:56] VITALS: BMI 22.1
--- NOTE | 2023-12-20 16:14 | PC.NURSE ---
Addendum entered by Kayleen Marshall RN 12/21/23 09:26: pt is no longer on Metoprolol so [place] and pt aware that he is not taking it. Meds reconciled again with [facility]. Addendum entered by Kayleen Marshall RN 12/21/23 08:17: Faxed these instructions to [facility] and also printed off for pt to get on Sunday at 1230 w his PAT Testing appt. Original Note: Report to the Outpatient Waiting Room, entrance under the green pavilion located off [facility], at time _06:30am_on date 12/25/23 . Planned Procedure Time: __08:30am .? Time changes happen often and if your time is changed the preop area will call you the afternoon before. - You and your visitor will be asked to self-screen and do not enter if you have any COVID symptoms. Please call surgeon if you need to reschedule. - A mask is optional within the hospital at this time. Patients may have clear liquids (water, carbonated beverages, clear teas, apple juice) until 3 hours prior to surgery with a maximum of 20 ounces. - No food from midnight until time of surgery and no smoking Take only the following medications with a SIP of water on the morning of surgery: Take Metoprolol, Levothyroxine, Tylenol and Meclizine as needed._ DO NOT STOP ANY OF YOUR OTHER PRESCRIPTION MEDICATIONS PRIOR TO SURGERY EXCEPT THE FOLLOWING Hold ASA for [address] Rapp Last dose 12/17/23. Hold Eliquis per Dr Cochran instructions preop - pt awaiting call from them but is aware there will be a HOLD of a few days at minimum. __ Hold all vitamins and supplements 3 days prior to surgery per Anesthesia. Date to take last dose___12/21/23 Please no make-up, nail citizen of [place], hairspray, perfume, deodorant, or body powder the day of surgery.? No jewelry (including any body piercings) or valuables the day of surgery, leave them at home.? Please take a shower or bath the night before, or the morning of, surgery with an antibacterial soap.? Wear comfortable, loose fitting clothing.? Children are encouraged to wear pajamas. - Jewelry must be removed prior to entering the operating room.? Rings and piercings that are not removed may be cut off. - The hospital will not accept responsibility for valuables.? - Please leave all valuables, including medications, at home the day of surgery. If you are going home after surgery, a licensed hog driver must drive you home.? - NO public transportation without another adult if you receive anesthesia. - We recommend that an adult stay with you for 24 hours following discharge. - We also recommend that you do not drive, make important decision, drink alcoholic beverages, or take any drugs that were not prescribed by your health care provider for at least 24 hours after your discharge time. For Pediatric surgeries, we recommend two adults accompany the child home. Follow any additional instructions given to you from your surgeon. Telephone instructions given to and asked if any additional questions and then verbalized understanding. Patient advised to call surgeon office or pre surgery nurse liaison [phone] if any additional questions.
[2023-12-25] VITALS (12 sets, daily range): BP systolic 105–145; BP diastolic 47–80; PULSE 61–103; RESP 10–18; TEMP 36.1–36.7; O2SAT 98–100; BMI 22.5
--- NOTE | ~2023-12-25 | XR_ITS ---
INTRAOPERATIVE FLUOROSCOPY: CLINICAL HISTORY: 83 years old Male; ORIF LEFT ELBOW PROCEDURE COMMENTS: Limited intraoperative fluoroscopy of the left elbow was performed. CUMULATIVE DOSE: 20.8 mGy FLUOROSCOPY TIME: 10 minutes, 12 seconds FINDINGS/IMPRESSION: Please refer to operative note for further details. Reviewed, dictated and finalized at location A.
[2023-12-25] MEDS: LACTATED RINGERS 1,000 ML 30 ML IV CONT (07:05)
[2023-12-25] MEDS: ACETAMINOPHEN 500 MG TABLET 1000 MG PO (07:29)
[2023-12-25] MEDS: CELECOXIB 200 MG CAPSULE PO (07:30)
--- NOTE | 2023-12-25 07:30 | SUR.PREOP ---
0730- Scrub and shave in pre-op deferred due to fracture.
[2023-12-25 07:31] LABS: INR 1.2; Prothrombin Time 15.5 Seconds (11.1-14.7)
--- NOTE | 2023-12-25 08:25 | SUR.PREOP ---
0815-pt sleeping- made aware Dr. Carlin called and stated he will be late-undetermined amount of time.
--- NOTE | 2023-12-25 08:49 | WPDHPUPDATE1 ---
History and Physical Update Update Date/Time: 12/25/23 08:49 History and Physical has been reviewed, including an updated exam of the patient. There are NO changes in the patient's condition. Risks, benefits, and alternatives have been discussed and questions answered. Patient agrees to proceed with procedure.
--- NOTE | 2023-12-25 08:50 | P.PNAN_ITS ---
Anes - Initial Pre Proc Eval Procedure: Operation Date: 12/25/23 08:30 Proposed Procedures p Open Reduction Internal Fixation Left Olecranon Fracture - Roly Rapp MD Date/Time: 12/25/23 08:50 Surgeon: Roly Rapp MD Pre Op Diagnosis: left olecranon fx Patient Data Age: 83 Gender: M Height: 1.88 m Weight: 79.7 kg Last Vital Signs Temp 36.7 C 12/25/23 06:35 Pulse 78 12/25/23 06:35 Resp 18 12/25/23 06:35 BP 105/53 L 12/25/23 06:35 Pulse Ox 98 12/25/23 06:35 O2 Del Method Room Air 12/25/23 06:35 Allergies Allergy/AdvReac Type Severity Reaction Status Date / Time Penicillins Allergy Intermediate Hives Verified 12/25/23 07:33 Home Medications Medication Instructions Recorded Confirmed Type acetaminophen 325 mg tablet 650 mg PO PRN PRN Pain (Scale 03/13/19 12/24/23 History (Tylenol) Score 1-3) atorvastatin 20 mg tablet 20 mg PO QPM 03/13/19 12/24/23 History docusate sodium 100 mg capsule 100 mg PO BID PRN Constipation 03/13/19 12/24/23 History (Colace) famotidine 20 mg tablet 20 mg PO BID 03/13/19 12/24/23 History multivitamin 1 tablet PO DAILY 03/13/19 12/25/23 History polyethylene glycol 3350 17 17 gm PO PRN PRN Constipation 03/13/19 12/24/23 History gram/dose oral powder (Miralax) aspirin 81 mg tablet,delayed 81 mg PO DAILY 12/15/20 12/25/23 History release cetirizine 10 mg tablet 10 mg PO DAILY 12/15/20 12/24/23 History meclizine 25 mg tablet 25 mg PO TID PRN Dizziness 12/15/20 12/24/23 History mecobalamin (vitamin B12) 5,000 5,000 mcg PO DAILY 12/15/20 12/25/23 History mcg disintegrating tablet apixaban 2.5 mg tablet (Eliquis) 2.5 mg PO BID 12/20/23 12/25/23 History cholestyramine-aspartame 4 gram 1 ea PO DAILY 12/21/23 12/24/23 History oral powder for susp in a packet (Cholestyramine Light) ergocalciferol (vitamin D2) 1,250 1,250 mcg PO WEEKLY 12/21/23 12/25/23 History mcg (50,000 unit) capsule (Vitamin D2) ferrous sulfate 325 mg (65 mg 325 mg PO DAILY 12/21/23 12/25/23 History iron) capsule,extended release guaifenesin 600 mg tablet,extended 600 mg PO DAILY 12/21/23 12/24/23 History release hydrocodone 5 mg-acetaminophen 325 1 tablet PO Q6H PRN Pain 12/21/23 12/24/23 History mg tablet levothyroxine 75 mcg tablet 75 mcg PO DAILY 12/21/23 12/24/23 History sodium bicarbonate 650 mg tablet 1,950 mg PO DAILY CKD 12/21/23 12/25/23 History Laboratory Tests 12/25/23 07:13 PT 15.5 H Seconds (11.1-14.7) INR 1.2 Patient hx anesthesia problems: none Family hx anesthesia problems: none Results Review: All pre-operative results and documents have been reviewed as part of the pre- operative evaluation. [facility] Past Medical History Medical History Anemia Atrial fibrillation Paroxysmal CAD (coronary artery disease) 5 vessel CABG. 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 Patient stated that he quit smoking about 2 months ago. He said he smoked for many years. No alcohol or illicit drugs. He was an only child. His Sarah is the power deputy commonwealth's attorney for healthcare. He at this point stated he is a full code because the surgery but otherwise had this at that he is a DNR. There is paperwork from [facility]. He lives with his . He has 1 child. Smoking packs per day: 0.5 Smoking cigarettes per day: 10.0 Years smoked: 20 Smoking pack-years: 10.00 Smoking status: Former smoker Tobacco type: cigarettes Second hand tobacco smoke exposure: Yes Smoking end date: 03/05/21 Alcohol intake: never Substance use: never Living arrangements: assisted living Additional living arrangements comments: Occupation/Education: retired Gender identity (if verbalized by the patient): Male Spiritual care concerns: No Agree to blood products: Yes Anes - Eval Final PreProcedure Day of Procedure 12/25/23 08:50 Patient weight: normal Heart: regular rate and rhythm Lungs: clear to auscultation Airway: Mallampati scale class II Neurological: alert and oriented Last oral intake: >/= 8 hours ASA classification: III Emergent: no Anesthetic plan: proceed Anesthesia type and monitoring: general LMA and standard monitoring Results Review: All pre-operative results and documents have been reviewed as part of the pre- operative evaluation. Informed Consent: The patient's anesthetic plan and its attendant risks and benefits were discussed with the patient/family/POA. Questions were solicited and answers provided to the satisfaction of the patient/family/POA.
[2023-12-25] MEDS: ceFAZolin 2 GM/D5W 50 ML 2 GM/50 ML BAG IVPB (08:57)
--- NOTE | 2023-12-25 12:25 | SUR.PHASEI ---
Simple mask removed 1225.
--- NOTE | 2023-12-25 13:09 | W.PM.PROC2 ---
Procedure Note - Detailed Date of Procedure 12/25/23 Pre-op Diagnosis left olecranon fx Post-op Diagnosis Same Procedure Performed ORIF LEFT OLECRANON FRACTURE Surgeon Roly Rapp MD Anesthesia General Description of Procedure HE PATIENT WAS TAKEN TO THE OR AND INTUBATED. THE LEFT UPPER EXTREMITY WAS PREPPED AND DRAPED. THE TOURNIQUET WAS INFLATED. INCISION WAS MADE ON THE POSTERIOR ASPECT OF THE ELBOW DOWN TO FASCIA. THE FASCIA WAS INCISED AND DISSECTED DOWN TO BONE. THE FRACTURE WAS IDENTIFIED. THE FRACTURE WAS HIGHLY COMMINUTED. FIBROUS TISSUE WAS REMOVED FROM THE FRACTURE SITE. REDUCTION WAS PREFORMED TO NEAR ANATOMIC POSITION WITH FRACTURE CLAMPS AND K WIRES. AN ACUMED OLECRANON PLATE WAS USED TO BRIDGE THE FRACTURE FRAGMENTS. SCREWS WERE PLACE USING STANDARD AO TECHNIQUE AND ALL HAD GOOD BITES. XRAYS WERE TAKEN USING FLUOROSCOPY AND IT WAS FOUND THAT THE FRACTURE FRAGMENTS AND HARDWARE WERE IN GOOD POSITION. THE WOUND WAS WASHED THEN THE TOURNIQUET DEFLATED AND THE BLEEDERS WERE CAUTERIZED. THE DEEP LAYERS OF FASCIA WERE REPAIRED WITH 0 VICRYL, THE SUB CUTANEOUS LAYER WITH 2-0 VICRYL AND THE SKIN WITH VERONICA. THE WOUND WAS WASHED AGAIN. STERILE DRESSING WAS APPLIED THEN A PLASTER SPLINT WAS APPLIED. THE PATIENT WAS EXTUBATED AND SENT TO RECOVERY ROOM Estimated Blood Loss 20 Drains No Packing No Pathology None sent Complications No immediate complications Condition Stable Disposition PACU
== END 2023-12-25 14:16 | disposition home or self-care (01) ==
PROVIDERS: Anesthesiology; PCP Family Medicine; Visit Provider Orthopaedic Surgery
PROC: (CPT 24685; principal; 2023-12-25 08:30)
DX: S52.022A Displaced fracture of olecranon process without intraarticular extension of left ulna, initial encounter for closed fracture (principal); E78.5 Hyperlipidemia, unspecified; D64.9 Anemia, unspecified; I48.0 Paroxysmal atrial fibrillation; I25.10 Atherosclerotic heart disease of native coronary artery without angina pectoris; I11.0 Hypertensive heart disease with heart failure; I50.20 Unspecified systolic (congestive) heart failure; M16.12 Unilateral primary osteoarthritis, left hip; K21.9 Gastro-esophageal reflux disease without esophagitis; I25.2 Old myocardial infarction; G47.33 Obstructive sleep apnea (adult) (pediatric); Z79.82 Long term (current) use of aspirin; Z79.01 Long term (current) use of anticoagulants; Z79.891 Long term (current) use of opiate analgesic; Z98.890 Other specified postprocedural states; Z95.1 Presence of aortocoronary bypass graft; Z87.891 Personal history of nicotine dependence; Z80.9 Family history of malignant neoplasm, unspecified; W18.30XA Fall on same level, unspecified, initial encounter
CPT/HCPCS: 24685; 36415; 85610; 99199; A4565; A9270; C1713; J0690; J1100; J1171; J2003; J2371; J2405; J2704; J3010; J7120

== ENCOUNTER 2024-05-08 08:27 | Outpatient (CLI) | payer MEDICARE, SELFPAY ==
--- NOTE | ~2024-05-08 | CT_ITS ---
EXAMINATION: CT lumbar spine wo con DATE: 05/08/2024 08:41 INDICATION: Low back pain. TECHNIQUE: Computed tomography (CT) of the lumbar spine was performed without intravenous contrast. A utomated exposure control and iterative reconstruction technique were employed. The dose-length produ ct was 690.22 mGy-cm. COMPARISON: Lumbar spine CT 01/15/2012 FINDINGS: There are cysts in the kidneys measuring up to 7.2 cm on the right. There is 19 degrees dex troscoliosis of thoracolumbar spine. There is 3 mm retrolisthesis of T12 on L1 and L2 on L3. There is mild chronic anterior wedging of T12, L1, and L2 vertebral bodies. There is moderately decreased dis c height at T12-L1, severely decreased disc height from L1-L2 through L4-L5, and moderately decreased disc height at L5-S1. There is Baastrup disease from L2-L3 through L5-S1. The following disc levels are specifically discussed: L1-L2: The disc is bulging. There is mild right and moderate left facet joint osteoarthritis. There i s mild right and moderate left neural foraminal stenosis. There is mild central canal stenosis. L2-L3: The disc is bulging. There is moderate bilateral facet joint osteoarthritis. There is mild rig ht and moderate left neural foraminal stenosis. There is mild central canal stenosis. L3-L4: The disc is bulging. There is severe bilateral facet joint osteoarthritis. There is mild bilat eral neural foraminal stenosis. There is mild central canal stenosis. L4-L5: The disc is bulging. There is severe bilateral facet joint osteoarthritis. There is moderate r ight and mild left neural foraminal stenosis. There is mild central canal stenosis. There is severe s tenosis of right lateral recess and moderate stenosis of left lateral recess. L5-S1: The disc is bulging. There is severe bilateral facet joint osteoarthritis. There is mild bilat eral neural foraminal stenosis. There is mild central canal stenosis. IMPRESSION: 1. Severe lumbar spondylosis. 2. Thoracolumbar dextroscoliosis. Reviewed, dictated and finalized at location [] AND DIE ASSEMBLER
--- OUTSIDE RECORDS SUMMARY | 2024-05-08 08:42 | XMS_ITS ---
Author Organization [facility] Address [address] [place] [address] Care Team Providers Care Intelligence Officer Name Role Phone Armando Boudreaux MD Primary Care Provider [phone] Dialysis Access Sites Type Status Location Placement Date Removal Da te Hemodialysis Cath Double 08/04/22 Right Internal Jugular Inactive Right Neck (side) - Anterior 08/04/2022 08/16/2022 Allergies Active Allergy Reactions Criticality Noted Date Comments Penicillins Hives Medium 10/15/2018 Medications famotidine (PEPCID) 20 mg tablet Take 1 tablet (20 mg total) by mouth 2 (two) times a day 98 9 Active aspirin 81 mg chewable tablet Take 1 tablet (81 mg total) by mouth daily Active acetaminophen (TYLENOL) 325 mg tablet Take 2 tablets (650 mg total) by mouth every 6 (six) hours as needed for pain Active multivitamin capsule Take 1 capsule by mouth daily Active cetirizine (ZyrTEC) 10 mg tablet Take 1 tablet (10 mg total) by mouth daily Active levothyroxine (SYNTHROID) 75 mcg tablet Take 1 tablet (75 mcg total) by mouth veterinary technician assistant before breakfast Active ergocalciferol (VITAMIN D) 50,000 unit capsule Take 1 capsule (50,000 Units total) by mouth once a week Active ferrous sulfate 325 mg (65 mg of elemental iron) tabletIndication s:Iron Deficiency Anemia Take 1 tablet (325 mg total) by mouth daily with breakfast Active apixaban (ELIQUIS) 2.5 mg tabletIndication s:atrial fibrillation Take 1 tablet (2.5 mg total) by mouth every 12 (twelve) hours 60 tablet 2 3 Active dicyclomine (BENTYL) 20 mg tablet Take 1 tablet (20 mg total) by mouth every 6 (six) hours as needed (Diarrhea) 60 tablet 1 3 Active cholestyramine-a spartame (QUESTRAN LIGHT) 4 gram powder in packet Take 1 packet by mouth 3 (three) times a day before meals 90 packet 1 3 Active cyanocobalamin (vitamin B-12) 1,000 mcg tabletIndication s:Prevention of Vitamin B12 Deficiency Take 1 tablet (1,000 mcg total) by mouth daily 30 tablet 11 3 Active diphenoxylate-at ropine (LOMOTIL) 2.5-0.025 mg per tabletIndication s:diarrhea Take 1 tablet by mouth 4 (four) times a day as needed for diarrhea Active sodium bicarbonate 650 mg tabletIndication s:metabolic acidosis Take 4 tablets (2,600 mg total) by mouth 3 (three) times a day 360 tablet 11 4 05/14/19 25 Active Additional Information Patient taking differently: 3 tabletoral 3 times daily, Indications: metabolic acidosis, Reported on 12/24/2023 atorvastatin (LIPITOR) 20 mg tablet Take 1 tablet (20 mg total) by mouth daily 4 Active patiromer calcium sorbitex (Veltassa) packet Take 1 packet (8.4 g total) by mouth 2 (two) times a day 60 packet 11 4 10/02/19 25 Active guaiFENesin ER (MUCINEX) 600 mg 12 hr tablet Take 2 tablets (1,200 mg total) by mouth 2 (two) times a day Active HYDROcodone-acet aminophen (VICODIN) 5-300 mg per tablet Take 1 tablet by mouth every 6 (six) hours as needed for moderate pain (pain scale 5-7) Active Active Problems Problem Noted Date Diagnosed Date Mild malnutrition 08/11/2022 Small bowel obstruction 08/03/2022 Acute kidney injury superimposed on CKD 08/04/19 23 Hyponatremia 08/03/2022 Lactic acid acidosis 08/03/2022 Status post coronary artery bypass graft 022 Bilateral carotid artery stenosis 07/20/2021 Assessment & Plan (08/24/2021 3:30 PM CDT): Less than 50% stenosis bilaterally, this no longer needs surveillance. Continue risk factor modification with ASA and statin therapy. Assessment & Plan (07/20/2021 11:07 AM CDT): Impression: Patient has mild bilateral carotid stenosis as seen on carotid duplex. Patient is asymptomatic. Plan: Continue ongoing risk factor modifications. Permanent atrial fibrillation 01/19/2021 Assessment & Plan (01/19/2021 10:09 AM RADIO REPAIRMAN): Assessment/plan: Continue anticoagulation. Mild malnutrition 12/30/2020 Ischemic bowel disease 12/16/2020 Assessment & Plan (01/19/2021 9:55 AM RADIO REPAIRMAN): Assessment: S/p SMA embolectomy with bowel resection. Doing well since surgery. Plan: Plans for outpatient follow-up with Dr. Callahan next week as well as myself in 6 months. CKD (chronic kidney disease) stage 4, GFR 15-29 ml/min (CMS/HCC) 10/15/2018 Secondary hyperparathyroidism 10/15/2018 Left renal mass 10/15/2018 ASVD (arteriosclerotic vascular disease) 019 Essential hypertension Assessment & Plan (08/24/2021 3:30 PM CDT): Lisinopril Assessment & Plan (01/19/2021 9:56 AM RADIO REPAIRMAN): Assessment/plan: Continue good blood pressure control. Delirium Superior mesenteric artery thrombosis Assessment & Plan (08/24/2021 3:29 PM CDT): No evidence of mesenteric stenosis in the celiac or SMA on duplex. Continue anticoagulation. No further surveillance needed. Assessment & Plan (07/20/2021 11:09 AM CDT): Impression: Patient is status post superior mesenteric artery embolectomy. Patient denies any new symptoms of abdominal, back, flank pain. Patient also denies any postprandial pain, unintentional weight loss, or food avoidance. Patient's ileostomy is intact with bowel contents. Stoma is pink and viable. Plan: Recommend follow-up in 4 weeks for re-evaluation with CTA of abdomen and pelvis with contrast. Sepsis with acute organ dysfunction and septic s hock Immunizations Immunization Administration Dates Next Due Hib (PRP-T) 01/04/2021 Influenza, Unspecified 12/03/2020 Meningococcal B, OMV (Bexsero) 01/04/2021 Meningococcal Conjugate (Menveo) 01/04/2021 Pneumococcal Conjugate PCV 13 01/04/2021 Tdap 01/04/2021 Social History Tobacco Use Types Packs/Day Years Used Date Smoking Tobacco: Former Cigarettes Smokeless Tobacco: Never Tobacco Cessation:Counseling Given: Not Answered Alcohol Use Standard Drinks/Week Comments Never 0 (1 standard drink = 0.6 oz pur e alcohol) Social Connection and Isolat ion Panel [NHANES] Answer Date Recorded In a typical week, how many times do you talk on the phone with family, friends, or neighbors? More than three times a week 08/16/2022 How often do you get togethe r with friends or relatives? More than three times a week 08/16/2022 How often do you attend chur ch or temple services? Never 08/16/2022 Do you belong to any clubs o r organizations such as religion groups, unions, fraternal or athletic groups, or school groups? No 08/16/2022 How often do you attend meet ings of the clubs or organizations you belong to? Never 08/16/2022 Are you , , di vorced, , never , or living with a partner? 08/16/2022 AUDIT-C Answer Date Recorded Q1: How often do you have a drink containing alc ohol? Never 12/24/2023 Average Number of Drinks Not on file 024 Frequency of Binge Drinking Not on file 12/04 Overall Financial Resource Strain (CARDIA) Answe r Date Recorded How hard is it for you to pa y for the very basics like food, housing, medical care, and heating? Not hard at all 08/16/2022 Hunger Vital Sign Answer Date Recorded Within the past 12 months, y ou worried that your food would run out before you got the money to buy more. Never true 08/17/19 23 Within the past 12 months, t he food you bought just didn't last and you didn't have money to get more. Never true 08/16/2022 PRAPARE - Transportation Answer Date Re corded In the past 12 months, has l ack of transportation kept you from medical appointments or from getting medications? No 08/03 In the past 12 months, has l ack of transportation kept you from meetings, work, or from getting things needed for daily living? No 08/16/2022 Housing Stability Vital Sign Answer Renzo e Recorded In the last 12 months, was t here a time when you were not able to pay the mortgage or rent on time? No 08/16/2022 Number of Places Lived in the Last Year Not on f ile 08/16/2022 In the last 12 months, was t here a time when you did not have a steady place to sleep or slept in a fpc (including now)? No 08/16/2022 Personal Safety Answer Date Recorded Have you ever been in or are you currently in a harmful physical or emotional relationship or is someone making you feel afraid or unsafe? Denies 08/03/2022 Sex and Gender Information Value Date Recorded Sex Assigned at Not on file Legal Sex Male 6:51 PM CDT Gender Identity Not on file Sexual Orientation Not on file Last Filed Vital Signs Vital Sign Reading Time Taken Comments Blood Pressure 106/65 12/24/2023 9:09 AM CDT Pulse 80 12/24/2023 9:09 AM CDT Temperature 36.4 C (97.5 F) 12/24/2023 9:09 AM CDT Respiratory Rate 18 08/16/2022 11:10 AM CDT Oxygen Saturation 95% 08/16/2022 11:10 AM CDT Inhaled Oxygen Concentration - - Weight 80.7 kg (178 lb) 12/24/2023 9:09 AM CDT Height 188 cm (6' 2 ) 12/24/2023 9:09 AM CDT Body Mass Index 22.85 12/24/2023 9:09 AM CDT
--- OUTSIDE RECORDS SUMMARY | 2024-05-08 08:42 | XMS_ITS | Referral Summary ---
Author Organization [facility] Address [address] [place] [address] Care Team Providers Care Medical Secretary Receptionist Name Role Phone Armando Boudreaux MD Primary Care Provider [phone] Allergies Active Allergy Reactions Criticality Noted Date [...] 1 tablet (75 mcg total) by mouth yarn skeins examiner before breakfast Active ergocalciferol (VITAMIN D) 50,000 [...] 01/19/2021 Assessment & Plan (01/19/2021 10:09 AM CISO): Assessment/plan: Continue anticoagulation. 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 [...] Lisinopril Assessment & Plan (01/19/2021 9:56 AM CISO): Assessment/plan: Continue good blood pressure control. Delirium [...] acute organ dysfunction and septic s hock Resolved Problems Problem Noted Date Diagnosed Date Resolved Date Bruit of left carotid artery 01/19/2021 07/20/2021 Assessment & Plan (01/19/2021 9:56 AM CISO): Assessment/plan: Given his risk factors, carotid duplex or further evaluation. Immunizations Immunization Administration Dates Next Due Hib [...] often do you attend chur ch or adventism services? Never 08/16/2022 Do you belong to any clubs o r organizations such as hindu groups, unions, fraternal or athletic groups, or [...] place to sleep or slept in a half-way (including now)? No 08/16/2022 Personal Safety Answer [...] Mass Index 22.85 12/24/2023 9:09 AM CDT Plan of Treatment Not on file Insurance MEDICARE [facility] MEDICARE [facility] MEDICARE [facility] Advance Directives For more information, please contact: [phone] Documents on File Type Date Recorded Patient Warehouse Traffic Supervisor Expl anation ADVANCE DIRECTIVE 08/04/2022 11:46 AM POLST - Phys Order for PT Preferences ADVANCE DIRECTIVE 12/17/2020 10:[address] - Phys Order for PT Preferences * Full Code (Latest Code Status on File) Date Activated Date Inactivated Comments 08/04/2022 12:05 PM 08/16/2022 8:22 PM * LIMITED - No CPR Date Activated Date Inactivated Comments 08/04/2022 8:05 AM 08/04/2022 12:05 PM Question Answer Comments Provide aggressive medical m anagement before a full cardiopulmonary arrest occurs. Use antibiotics, IV Fluids, and medical treatment unless specifically selected below: No intubationNo non-invasive ventilationNo cardioversionNo internal / external pacemaker Discussed with the following attending physician: patient and patient's is Okay with vasopressors * LIMITED - No CPR Date Activated Date Inactivated Comments 08/03/2022 10:14 PM 08/04/2022 8:05 AM Question Answer Comments Provide aggressive medical m anagement before a full cardiopulmonary arrest occurs. Use antibiotics, IV Fluids, and medical treatment unless specifically selected below: No intubationNo non-invasive ventilationNo cardioversionNo internal / external pacemakerNo vasopressors * Full Code Date Activated Date Inactivated Comments 08/03/2022 10:13 PM 08/03/2022 10:14 PM * Full Code Date Activated Date Inactivated Comments 12/25/2020 7:41 PM 01/04/2021 7:14 PM Care Teams Medical Secretary Receptionist Relationship Specialty Start Date End Date Armando Boudreaux MD PCP - General Family Medicine 02/16/21
--- OUTSIDE RECORDS SUMMARY | 2024-05-08 08:42 | XMS_ITS | Clinical Summary ---
Author Organization [facility] Address [address] [place] [address] Care Team Providers Care Disability Insurance Hearing Officer Name Role Phone Grey Cardona MD Primary Care Provider [phone] Allergies Active Allergy Reactions Criticality Noted Date Comments Penicillins Rash High 05/09/2021 Medications ELIQUIS 5 MG tablet Take 1 tablet by mouth daily. 03/17/2021 Active atorvastatin 20 MG tablet Take 1 tablet by mouth daily. 03/17/2021 Active famotidine 20 MG tablet Take 1 tablet by mouth daily. 03/17/2021 Active HYDROcodone-isabela taminophen 7.5-325 MG tablet Take 1 tablet by mouth every 6 (six) hours as needed. 05/24/2020 Active levothyroxine 50 MCG tablet Take 1.5 tablets by mouth daily. 75mg daily 03/29/2021 Active lisinopril 2.5 MG tablet Take 1 tablet by mouth daily. 12/16/2020 Active Social History Tobacco Use Types Packs/Day Years Used Date Smoking Tobacco: Some Days Cigarettes Smokeless Tobacco: Never Comments:smokes maybe 2 ciga rettes per week Alcohol Use Standard Drinks/Week Comments Not Currently 0 (1 standard drink = 0.6 oz pur e alcohol) Sex and Gender Information Value Date Recorded Sex Assigned at Not on file Legal Sex Male 11:29 AM CDT Gender Identity Not on file Sexual Orientation Not on file Last Filed Vital Signs Vital Sign Reading Time Taken Comments Blood Pressure 147/92 05/12/2021 1:45 PM COMMERCIAL LIGHT FIXTURE ASSEMBLER Pulse 75 05/12/2021 10:33 AM COMMERCIAL LIGHT FIXTURE ASSEMBLER Temperature 36.3 C (97.3 F) 05/12/2021 7:34 AM COMMERCIAL LIGHT FIXTURE ASSEMBLER Respiratory Rate 20 05/12/2021 10:3 3 AM COMMERCIAL LIGHT FIXTURE ASSEMBLER Oxygen Saturation 99% 05/12/2021 1:45 PM COMMERCIAL LIGHT FIXTURE ASSEMBLER Inhaled Oxygen Concentration - - Weight 85.6 kg (188 lb 11.4 oz) 05/12/2021 7:34 AM COMMERCIAL LIGHT FIXTURE ASSEMBLER Height 188 cm (6' 2 ) 05/12/2021 7:34 AM COMMERCIAL LIGHT FIXTURE ASSEMBLER Body Mass Index 24.23 05/12/2021 7:34 AM COMMERCIAL LIGHT FIXTURE ASSEMBLER Plan of Treatment Health Maintenance Due Date Last Done Comments Zoster Vaccines (1 of 2) 06/14/1989 Annual Medicare Wellness Visit 06/14/2004 RSV Immunization or 60+ Years (1 - 1-dose 75+ series) 06/14/2014 Pneumococcal Vaccine: 65+ Years (2 of 2 - PPSV23 or PCV20) 03/01/2021 01/04/2021 COVID-19 Vaccine (4 - 2023-2 5 season) 2023 12/15/2020, 04/01/2020, 03/11/2020 Influenza Adult (#1) 2023 12/03/2020 DTaP, Tdap and Td Vaccines ( 2 - Td or Tdap) 01/04/2031 01/04/2021 Meningococcal B Vaccine Aged Out 01/04/2021 No l onger eligible based on patient's age to complete this topic Meningococcal Vaccine Aged Out 01/04/2021 No bobbi roberto carlos eligible based on patient's age to complete this topic RSV Immunizations Under 20 Months Aged Out No longer eligible b ased on patient's age to complete this topic Insurance MEDICARE [facility] Care Teams Disability Insurance Hearing Officer Relationship Specialty Start Date End Date Grey Cardona MD [phone] [address] PCP - General FAMILY PRACTICE 01/17/21
--- OUTSIDE RECORDS SUMMARY | 2024-05-08 08:42 | XMS_ITS | Continuity of Care Document ---
Author Name Auto Generated, Auto Generated Organization [employer] Support Name Relationship Address Phone Fernando Maguire Emergency Contact [address] [place] [address] Fernando Maguire Son [address] [place] [address] Jaxon Maguire Financial Responsible Democrat [address] [place] [address] Unavailable Jaxon Maguire Self [address] [place] [address] Unavailable Sarah Maguire Spouse Unknown Unavailable Corl, Annette Other Unknown Unavailable Summary Purpose Consult/Referral Allergies, Adverse Reactions, Alerts Type Description/Agent Code Date Allergy Active Date Allergy Inactivated Date of Last Reaction Adverse Reactions Severity Status Comments Source of Information FDB Medic ation Ingre dient penicillin Active Patien t History Medications Medications Prescription Date Begun Date Discontinued Status Associated Diagnoses Ordering Provider Mello 8.4 gram oral powder packet 8 mg 2 Times Daily 10/04/19 24 Active MD Armando Boudreaux sodium bicarbonate 650 mg tablet 3 tabs 3 Times Daily 09/07/19 24 Active ICD-10: N17.9 - ACUTE KIDNEY FAILURE, UNSPECIFIED MD Armando Boudreaux guaiFENesin ER 600 mg tablet, extended release 12 hr 1 tab PRN 2 Times Daily 08/12/19 24 Active MD Armando Boudreaux levothyroxine 75 mcg capsule 1 TABLET Every Morning 01/09/20 23 Active MD Armando Boudreaux dicyclomine 20 mg tablet 1 TABLET PRN Every 6 Hours 01/09/20 23 Active MD Armando Boudreaux Cholestyramine Light 4 gram powder for susp in a packet 1 PACKET 3 Times Daily 01/09/20 23 Active MD Armando Boudreaux Blood Pressure Cuff 1 2 Times Monthly 01/09/20 23 Active --DIAGNOSIS EXEMPT MD Armando Boudreaux acetaminophen 325 mg tablet 2 tabs PRN (Max 4 Doses) 01/09/20 23 Active ICD-10: G89.29 - OTHER CHRONIC PAIN MD Armnado Boudreaux ferrous sulfate 325 mg (65 mg iron) tablet,delayed release 1 tab 1 Time Daily 01/09/20 23 Active MD Armando Boudreaux cyanocobalamin (vit B-12) 1,000 mcg tablet 1 tab 1 Time Daily 11/05/19 23 Active MD Armando Boudreaux diphenoxylate-atr opine 2.5 mg-0.025 mg tablet 2.5-0.025 mg 1 TABLET PRN 4 Times Daily 09/08/19 23 Active JASVIR Oconnor Eliquis 2.5 mg tablet 1 2 Times Daily 08/24/19 23 Active ICD-10: I13.0 - HYPERTENSIVE HEART AND CHRONIC KIDNEY DISEASE WITH HEART FAILURE AND STAGE 1 THROUGH STAGE 4 CHRONIC KIDNEY DISEASE, OR UNSPECIFIED CHRONIC KIDNEY DISEASE MD Armando Boudreaux ergocalciferol (vitamin D2) 1,250 mcg (50,000 unit) capsule 1 1 Time Weekly 08/23/19 23 Active ICD-10: C64.9 - MALIGNANT NEOPLASM OF UNSPECIFIED KIDNEY, EXCEPT RENAL PELVIS MD Armando Boudreaux famotidine 20 mg tablet 1 2 Times Daily 11/16/19 22 Active ICD-10: K21.9 - GASTRO-ESOPHAG EAL REFLUX DISEASE WITHOUT ESOPHAGITIS MD Armando Boudreaux cetirizine 10 mg tablet 1 1 Time Daily 01/27/20 21 Active --DIAGNOSIS EXEMPT MD Armando Boudreaux atorvastatin 20 mg tablet 1 1 Time Daily 01/22/20 21 Active ICD-10: 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 MD Armando Boudreaux aspirin 81 mg chewable tablet 1 1 Time Daily 01/21/20 21 Active ICD-10: 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 MD Armando Boudreaux multivitamin tablet 1 1 Time Daily 01/21/20 21 Active ICD-10: D50.9 - IRON DEFICIENCY ANEMIA, UNSPECIFIED MD Armando Boudreaux Conditions/Problems Problem/Diagnosis Awareness of Diagnosis Code (ICD-10) Onset Date (Start Date) Resolution Date (End Date) Status Source Comments UNSPECIFIED FRACTURE OF LEFT FEMUR, INITIAL ENCOUNTER FOR CLOSED FRACTURE S72.92XA 12/25/19 24 Active MD Amrando Boudreaux OTHER FRACTURE OF SHAFT OF LEFT HUMERUS, INITIAL ENCOUNTER FOR CLOSED FRACTURE S42.392A 12/25/19 24 Active MD Armando Boudreaux UNSTEADINESS ON FEET R26.81 12/25/19 24 Active MD Armando Boudreaux WEAKNESS R53.1 12/25/19 24 Active MD Armando Boudreaux DISPLACED FRACTURE OF OLECRANON PROCESS WITHOUT INTRAARTICULAR EXTENSION OF LEFT ULNA, SUBSEQUENT ENCOUNTER FOR CLOSED FRACTURE WITH ROUTINE HEALING S52.022D 12/18/19 24 Active MD Armando Boudreaux PAIN IN LEFT HIP M25.552 12/18/19 24 Active MD Armando Boudreaux CONTUSION OF OTHER PART OF HEAD, SUBSEQUENT ENCOUNTER S00.83XD 12/18/19 24 Active MD Armando Boudreaux UNSPECIFIED OPEN WOUND OF LEFT HAND, SUBSEQUENT ENCOUNTER S61.402D 12/18/19 24 Active MD Armando Boudreaux ABRASION OF LEFT ELBOW, SUBSEQUENT ENCOUNTER S50.312D 12/18/19 24 Active MD Armando Boudreaux UNSPECIFIED FALL, SUBSEQUENT ENCOUNTER W19.XXXD 12/18/19 24 Active MD Armando Boudreaux VASCULAR DISORDER OF INTESTINE, UNSPECIFIED K55.9 08/17/19 23 Active MD Armando Boudreaux PERMANENT ATRIAL FIBRILLATION I48.21 08/17/19 23 Active MD Armando Boudreaux OTHER ACIDOSIS E87.29 08/17/19 23 Active MD Armando Boudreaux 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 08/17/19 23 Active MD Armando Boudreaux ADJUSTMENT DISORDER WITH ANXIETY F43.22 08/17/19 23 Active MD Armando Boudreaux PARASTOMAL HERNIA WITH OBSTRUCTION, 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 08/04/19 23 Active MD Armando Boudreaux OTHER INTESTINAL OBSTRUCTION UNSPECIFIED TO PARTIAL VERSUS COMPLETE OBSTRUCTION K56.699 08/04/19 23 Active MD Armando Boudreaux SEPSIS, UNSPECIFIED ORGANISM A41.9 08/04/19 23 Active MD Armando Boudreaux SEVERE SEPSIS WITH SEPTIC SHOCK R65.21 08/04/19 23 Active MD Armando Boudreaux ENCOUNTER FOR SURGICAL AFTERCARE FOLLOWING SURGERY ON THE DIGESTIVE SYSTEM Z48.815 08/04/19 23 Active MD Armando Boudreaux ACUTE KIDNEY FAILURE, UNSPECIFIED N17.9 08/04/19 23 Active MD Armando Boudreaux UNSPECIFIED ABDOMINAL PAIN R10.9 08/03/19 23 08/17/2022 Resolved MD Armando Boudreaux NAUSEA WITH VOMITING, UNSPECIFIED R11.2 08/03/19 23 08/17/2022 Resolved MD Armando Boudreaux HYPO-OSMOLALITY AND HYPONATREMIA E87.1 02/07/20 22 Active MD Armando Boudreaux HYPERKALEMIA E87.5 12/24/19 22 Active MD Armando Boudreaux HYPEROSMOLALITY AND HYPERNATREMIA E87.0 12/22/19 22 02/07/2022 Resolved MD Armando Boudreaux DEHYDRATION E86.0 12/14/19 22 02/07/2022 Resolved MD Armando Boudreaux PERSONAL HISTORY OF COVID-19 Z86.16 12/12/19 22 Active MD Armando Boudreaux COVID-19 U07.1 12/12/19 22 02/07/2022 Resolved MD Armando Boudreaux PERSONAL HISTORY OF OTHER DISEASES OF THE DIGESTIVE SYSTEM Z87.19 01/21/20 21 Active MD Armando Boudreaux 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 01/21/20 21 Active MD Armando Boudreaux VITAMIN D DEFICIENCY, UNSPECIFIED E55.9 01/21/20 21 Active MD Armando Boudreaux ANXIETY DISORDER, UNSPECIFIED F41.9 01/21/20 21 Active MD Armando Boudreaux INSOMNIA, UNSPECIFIED G47.00 01/21/20 21 Active MD Armando Boudreaux MUSCLE WEAKNESS (GENERALIZED) M62.81 01/21/20 21 Active MD Armando Boudreaux MALIGNANT NEOPLASM OF LEFT KIDNEY, EXCEPT RENAL PELVIS C64.2 01/21/20 21 Active MD Armando Boudreaux CHRONIC KIDNEY DISEASE, STAGE 4 (SEVERE) N18.4 01/05/20 21 Active MD Armando Boudreaux SPONDYLOSIS, UNSPECIFIED M47.9 01/05/20 21 Active MD Armando Boudreaux MALIGNANT NEOPLASM OF UNSPECIFIED KIDNEY, EXCEPT RENAL PELVIS C64.9 01/05/20 21 06/22/2021 Resolved MD Armando Boudreaux HYPERTENSIVE HEART AND CHRONIC KIDNEY DISEASE WITH HEART FAILURE AND STAGE 1 THROUGH STAGE 4 CHRONIC KIDNEY DISEASE, OR UNSPECIFIED CHRONIC KIDNEY DISEASE I13.0 01/05/20 21 Active MD Armando Boudreaux UNSPECIFIED ATHEROSCLEROSIS I70.90 01/05/20 21 Active MD Armando Boudreaux MAJOR DEPRESSIVE DISORDER, SINGLE EPISODE, MILD F32.0 01/05/20 21 Active MD Armando Boudreaux CUSTODIAL (CURRENT) USE OF ANTICOAGULANTS Z79.01 01/05/20 21 Active MD Armando Boudreaux PSYCHIATRIC TECHNICIAN (CURRENT) USE OF ASPIRIN Z79.82 01/05/20 21 Active MD Armando Boudreaux ENCOUNTER FOR ATTENTION TO ILEOSTOMY Z43.2 12/20/19 21 Active MD Armando Boudreaux ENCOUNTER FOR ATTENTION TO COLOSTOMY Z43.3 12/20/19 21 Active MD Armando Boudreaux ACUTE POSTHEMORRHAGIC ANEMIA D62 12/20/19 21 08/17/2022 Resolved MD Armando Boudreaux ACQUIRED ABSENCE OF SPLEEN Z90.81 12/18/19 21 Active MD Armando Boudreaux ACUTE INFARCTION OF LARGE INTESTINE, EXTENT UNSPECIFIED K55.049 12/17/19 21 08/17/2022 Resolved MD Armando Boudreaux ACQUIRED ABSENCE OF OTHER SPECIFIED PARTS OF DIGESTIVE TRACT Z90.49 12/17/19 21 Active MD Armando Boudreaux CHRONIC KIDNEY DISEASE, STAGE 3 UNSPECIFIED N18.30 12/04/19 20 01/05/2021 Resolved MD Armando Boudreaux OTHER SPECIFIED ANXIETY DISORDERS F41.8 10/20/19 20 Active MD Armando Boudreaux 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 10/20/19 20 01/05/2021 Resolved MD Armando Boudreaux BENIGN PAROXYSMAL VERTIGO, UNSPECIFIED EAR H81.10 10/09/19 20 Active MD Armando Boudreaux HYPOTHYROIDISM, UNSPECIFIED E03.9 10/09/19 20 Active MD Armando Boudreaux CONTACT WITH AND (SUSPECTED) EXPOSURE TO OTHER VIRAL COMMUNICABLE DISEASES Z20.828 09/02/19 20 01/05/2021 Resolved MD Armando Boudreaux PAIN IN UNSPECIFIED HIP M25.559 05/09/19 20 01/05/2021 Resolved MD Armando Boudreaux DERMATITIS, UNSPECIFIED L30.9 05/08/19 20 01/05/2021 Resolved MD Armando Boudreaux PRESENCE OF LEFT ARTIFICIAL HIP JOINT Z96.642 05/06/19 20 Active MD Armando Boudreaux ENCOUNTER FOR IMMUNIZATION Z23 12/19/19 19 01/05/2021 Resolved MD Armando Boudreaux NEOPLASM OF UNCERTAIN BEHAVIOR OF RIGHT KIDNEY D41.01 10/08/19 19 01/05/2021 Resolved MD Armando Boudreaux OLD MYOCARDIAL INFARCTION I25.2 10/08/19 19 Active MD Armando Boudreaux DO NOT RESUSCITATE Z66 10/08/19 19 08/17/2022 Resolved MD Armando Boudreaux UNILATERAL PRIMARY OSTEOARTHRITIS, LEFT HIP M16.12 10/08/19 19 01/05/2021 Resolved MD Armando Boudreaux OTHER CHRONIC PAIN G89.29 10/08/19 19 Active MD Armando Boudreaux CHRONIC SYSTOLIC (CONGESTIVE) HEART FAILURE I50.22 10/08/19 19 Active MD Armando Boudreaux SLOW TRANSIT CONSTIPATION K59.01 10/08/19 19 Active MD Armando Boudreaux GASTRO-ESOPHAGEAL REFLUX DISEASE WITHOUT ESOPHAGITIS K21.9 10/08/19 19 Active MD Armando Boudreaux ENCOUNTER FOR SURGICAL AFTERCARE FOLLOWING SURGERY ON THE CIRCULATORY SYSTEM Z48.812 09/04/19 19 10/01/[address] ELEVATION (STEMI) MYOCARDIAL INFARCTION INVOLVING OTHER CORONARY ARTERY OF INFERIOR WALL I21.19 09/04/19 19 10/01/2018 Resolved MD Armando Boudreaux ATHEROSCLEROTIC HEART DISEASE OF [place] CORONARY ARTERY WITHOUT ANGINA PECTORIS I25.10 09/04/19 19 Active MD Armando Boudreaux UNSPECIFIED SYSTOLIC (CONGESTIVE) HEART FAILURE I50.20 09/04/19 19 09/03/2018 Resolved MD Armando Boudreaux PAROXYSMAL ATRIAL FIBRILLATION I48.0 09/04/19 19 Active MD Armando Boudreaux ABNORMAL RADIOLOGIC FINDINGS ON DIAGNOSTIC IMAGING OF RENAL PELVIS, URETER, OR BLADDER R93.41 09/04/19 19 01/05/2021 Resolved MD Armando Boudreaux OTHER SPECIFIED DISEASES OF APPENDIX K38.8 09/04/19 19 01/13/2019 Resolved MD Armando Boudreaux IRON DEFICIENCY ANEMIA, UNSPECIFIED D50.9 09/04/19 19 Active MD Armando Boudreaux 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 09/04/19 19 Active MD Armando Boudreaux CHRONIC KIDNEY DISEASE, UNSPECIFIED N18.9 09/04/19 19 09/03/2018 Resolved MD Armando Boudreaux ACUTE SYSTOLIC (CONGESTIVE) HEART FAILURE I50.21 09/04/19 19 01/05/2021 Resolved MD Armando Boudreaux CHRONIC KIDNEY DISEASE, STAGE 3 (MODERATE) N18.3 09/04/19 19 12/03/2019 Resolved MD Armando Boudreaux SLEEP APNEA, UNSPECIFIED G47.30 09/04/19 19 Active MD Armando Boudreaux HYPERLIPIDEMIA, UNSPECIFIED E78.5 09/04/19 19 Active MD Armando Boudreaux Procedures No Known Procedures Immunizations Vaccine Administration Date Status Comirnaty 2023- (12y up)(P F) 30 mcg/0.3 mL intramuscular syringe 01/02/2024 Administered Fluad Triv (65y up)(P F) 45 mcg (15 mcg x 3)/0.5 mL IM syringe 12/13/2023 Administered VoteIt COVID-19 Vac cine (PF) 30 mcg/0.3 mL IM suspension(EUA) 12/15/2020 Administered Fluad Quad [id number](65yr up )(PF) 60 mcg (15 mcg x 4)/0.5mL IM syringe 12/08/2020 Administered
--- OUTSIDE RECORDS SUMMARY | 2024-05-08 08:42 | XMS_ITS | Clinical Summary ---
Author Organization [facility] Office Center Address [address] [place] [address] Care Team Providers Care Supervisor Paste Mixing Name Role Phone Armando Boudreaux MD Primary Care Provider [phone] Allergies Active Allergy Reactions Criticality Noted Date [...] 1 tablet (75 mcg total) by mouth automobile mechanic radiator before breakfast Active ergocalciferol (VITAMIN D) 50,000 [...] 01/19/2021 Assessment & Plan (01/19/2021 10:09 AM PIPE FITTER MARINE): Assessment/plan: Continue anticoagulation. Mild malnutrition 12/30/2020 Ischemic bowel disease 12/16/2020 Assessment & Plan (01/19/2021 9:55 AM PIPE FITTER MARINE): Assessment: S/p SMA embolectomy with bowel resection. [...] Lisinopril Assessment & Plan (01/19/2021 9:56 AM PIPE FITTER MARINE): Assessment/plan: Continue good blood pressure control. Delirium [...] 07/20/2021 Assessment & Plan (01/19/2021 9:56 AM PIPE FITTER MARINE): Assessment/plan: Given his risk factors, carotid duplex or further evaluation. Immunizations Immunization Administration Dates Next Due Hib (PRP-T) 01/04/2021 Influenza, Unspecified 12/03/2020 Meningococcal B, OMV (Bexsero) 01/04/2021 Meningococcal Conjugate (Menveo) 01/04/2021 Pneumococcal Conjugate PCV 13 01/04/2021 Tdap 01/04/2021 Surgical History Surgery Date Site/Laterality Comments APPENDECTOMY LAPAROTOMY 12/16/2020 COLECTOMY 12/16/2020 Right EMBOLECTOMY 12/16/2020 sma artery Medical History Medical History Date Comments Acute renal failure Multi-vessel coronary artery stenosis A-fib (HCC) STEMI (ST elevation myocardial infarction) (HCC) Chronic kidney disease, stage III (moderate) (HC C) Family History Medical History Relation Name Comments Cancer Other Relation Name Status Comments Other Social History Tobacco Use Types Packs/Day Years [...] often do you attend chur ch or taoism services? Never 08/16/2022 Do you belong to any clubs o r organizations such as yarsanism groups, unions, fraternal or athletic groups, or [...] place to sleep or slept in a fdc (including now)? No 08/16/2022 Personal Safety Answer [...] on file Sexual Orientation Not on file Obstetrics History Last Filed Vital Signs Vital Sign Reading [...] 12/24/2023 9:09 AM CDT Plan of Treatment Health Maintenance Due Date Last Done Comments Depression Screening 1940 Hepatitis B Screening 06/14/1957 Zoster Vaccine (1 of 2) 06/14/1989 Well Visit 65+ 06/14/2004 Pneumococcal vaccine 65+ (2 of 2 - PPSV23) 01/04/2022 01/04/2021 Fall Risk Assessment 08/17/2023 08/16/2022 Covid-19 Vaccine ( season) 2023, 03/11/2020 Influenza Vaccine (#1) 2023 12/03/2020 DTaP/Tdap/Td Vaccine (2 - Td or Tdap) 01/04/203104/2020 Insurance MEDICARE [facility] MEDICARE [facility] MEDICARE BLUE [facility] Advance Directives For more information, please contact: [phone] Documents on File Type Date Recorded Patient Coremaker Pipe Expl anation ADVANCE DIRECTIVE 08/04/2022 11:46 AM [...] 7:41 PM 01/04/2021 7:14 PM Care Teams Supervisor Paste Mixing Relationship Specialty Start Date End Date Armando Boudreaux MD PCP - General Family Medicine 02/16/21
--- OUTSIDE RECORDS SUMMARY | 2024-05-08 08:42 | XMS_ITS | Continuity of Care Document ---
Author Organization [facility] Address [address] [place] [address] Phone Care Team Providers Care Radiologic Technology Teacher Name Role Phone Cardoza OD, Winston Unavailable Unavailable Advance Directives Directive Yes / No Effective Date File Name No Information Encounters Encounter Description Practice Location Reason(s) For Visit Diagnoses Date Provider Providers Copied on Encounter [facility], [address], [place], [place], [id number], [place] tel:[phone] [facility] No Information [phone] Cardoza OD Winston. [address], [place], [address], [place]. tel:[phone] Family History Family Member Type Diagnosis Age At Onset No Information Payers Payer name Insurance type Covered alliance party ID Authoriza tion(s) No Information Social History Type Description Quantity Date Captured Comments Sex Male Smoking Status No Information Chief Complaint And Reason For Visit No Information Reason For Referral Reason For Referral No Information History Of Present Illness Encounter Date Complaint History Of Prese nt Illness No Information Functional Status Date Functional Assessmen t No Information Instructions Date Instruction Additional Infor mation No Information Assessments Type Assessment Date No Information Patient Care Teams Name Effective Dates (start - stop) Status Members No Information
== END 2024-05-08 08:28 | disposition home or self-care (01) ==
PROVIDERS: PCP Family Medicine; Visit Provider Family Medicine
DX: M47.816 Spondylosis without myelopathy or radiculopathy, lumbar region (principal); M41.85 Other forms of scoliosis, thoracolumbar region
CPT/HCPCS: 72131